=== PATIENT | female | born 1995 | race Caucasian/White ===

== ENCOUNTER 2021-06-21 20:18 | Inpatient (IN) | payer MEDICAID, OTHER ==
[~2021-06-21] VITALS: Ht 170.2 cm; Wt 72.7 kg
--- NOTE | 2021-06-21 21:22 | NUR ---
spoke with pt about discussing medical interventions and updates with mother. pt stated that was okay. I spoke to mother about pt being brought to ED. mother provided me with pt's ID and phone number. phone number and ID given to marisol OWEN
[2021-06-21] MEDS ORDERED: normal saline 1000ML IV soln IVB ONE (21:30)
[2021-06-21] MEDS ORDERED: LORazepam 2 mg/ml vial IV ONE ×2 (21:30→23:20)
[2021-06-21] MEDS ORDERED: dextrose ORAL solution 15 GM/59 ML bottle PO ONE (21:40)
[2021-06-21 22:03] LABS: BASOPHILS % (AUTO) 0.5 % (0-1); EOSINOPHILS % (AUTO) 0.2 % (0-6); HEMATOCRIT 49.1 % (35.0-45.0); HEMOGLOBIN 17.3 g/dl (12.0-16.0); LYMPHOCYTES # (AUTO) 3.3 X10'3 (1.1-4.8); LYMPHOCYTES % (AUTO) 36.6 % (21-51); MEAN CORPUSCULAR HGB CONC 35.3 g/dL (33.0-36.5); MEAN CORPUSCULAR VOLUME 96.2 FL (78-98); MEAN PLATELET VOLUME 7.3 FL (7.4-10.4); MONOCYTES # (AUTO) 0.4 X10'3 (0-0.9); MONOCYTES % (AUTO) 4.9 % (2-12); NEUTROPHILS # (AUTO) 5.2 X10'3 (1.8-7.7); NEUTROPHILS % (AUTO) 57.8 % (42-75); PLATELET COUNT 252 X10'3 (140-440); RED CELL DISTRIBUTION WIDTH 12.8 % (11.5-14.5); WHITE BLOOD COUNT 8.9 X10'3 (4.5-11.0)
[2021-06-21 22:17] LABS: ALANINE AMINOTRANSFERASE 119 U/L (12-78); ALBUMIN/GLOBULIN RATIO 0.9 (1.1-1.5); ALKALINE PHOSPHATASE 160 IU/L (46-116); ANION GAP 20 (8-16); ASPARTATE AMINO TRANSFERASE 240 U/L (10-37); BILIRUBIN,TOTAL 1.1 MG/DL (0.1-1.0); BLOOD UREA NITROGEN 10 MG/DL (7-18); CALCIUM 8.4 MG/DL (8.5-10.1); CHLORIDE 101 MMOL/L (99-107); CREATININE 0.77 MG/DL (0.40-0.90); GLUCOSE 100 MG/DL (70-104); MAGNESIUM 2.1 MG/DL (1.5-2.4); POTASSIUM 3.6 MMOL/L (3.5-5.1); SODIUM 141 MMOL/L (135-145); TOTAL CARBON DIOXIDE 20.2 MMOL/L (24-32); TOTAL PROTEIN 8.7 G/DL (6.4-8.2); eGFR > 90 ML/MIN
[2021-06-21 22:18] LABS: ETHANOL 0.358 GM/DL (0.0-0.010)
[2021-06-21] MEDS ORDERED: folic acid 1mg tablet PO ONE (22:35)
[2021-06-21] MEDS ORDERED: thiamine 100mg tablet PO ONE (22:35)
[2021-06-21 22:42] LABS: URINE HCG NEGATIVE (NEG)
[2021-06-21 22:59] LABS: CLARITY,URINE SLIGHTLY CLOUDY (Clear); COLOR,URINE YELLOW (Yellow); GLUCOSE, URINE NEGATIVE (Neg); KETONES,URINE NEGATIVE (Neg); PH,URINE 5.5 (4.8-8.0); PROTEIN,URINE NEGATIVE (Neg); UA COLLECTION TYPE URINAL; URINE AMPHETAMINE SCREEN NEGATIVE (Neg); URINE BARBITUATE SCREEN NEGATIVE (Neg); URINE BENZODIAZEPINES SCREEN NEGATIVE (Neg); URINE CANNABINOID SCREEN NEGATIVE (Neg); URINE COCAINE SCREEN NEGATIVE (Neg); URINE METHADONE SCREEN NEGATIVE (Neg); URINE OPIATE SCREEN NEGATIVE (Neg); URINE PHENCYCLIDINE SCREEN NEGATIVE (Neg)
[2021-06-21 23:00] LABS: LEUKOCYTE ESTERASE ,URINE NEGATIVE (Neg); NITRITES, URINE NEGATIVE (Neg); OCCULT BLOOD,URINE NEGATIVE (Neg); UROBILINOGEN,URINE 0.2 E.U/dL (0.2-1.0)
[2021-06-21 23:06] LABS: AMORPHOUS URATES 1+; BACTERIA,URINE 1+ /HPF (Neg); MUCUS STRANDS FEW /LPF (Neg); RBC,URINE 0-2 /HPF (0-2); SQUAMOUS EPITHELIAL CELL,UR MODERATE /LPF (FEW); WBC,URINE 0-4 /HPF (0-4)
[2021-06-21] MEDS ORDERED: potassium Cl 20 mEq SR tablet PO ONE (23:10)
[2021-06-21] MEDS ORDERED: magnesium 2GM in 50ml NS 50 ML IV ONE (23:10)
[2021-06-21] MEDS ORDERED: mag hydrox/Alum hydrox/simeth 30ml oral suspension PO PRN (23:55)
[2021-06-21] MEDS ORDERED: ondansetron/PF 4mg/2ml inj IV PRN (23:55)
[2021-06-21] MEDS ORDERED: magnesium hydroxide 30ml (MOM) UD suspension PO PRN (23:55)
[2021-06-21] MEDS ORDERED: acetaminophen 325mg tablet PO PRN (23:55)
[2021-06-22] MEDS ORDERED: LORazepam 2 mg/ml vial IV PRN
[2021-06-22] MEDS ORDERED: NO HOME MEDS (00:12)
[2021-06-22 02:04] VITALS: BP 122/55
[2021-06-22] MEDS: LORazepam 2 mg/ml vial IV PRN ×5 (02:30→20:26)
--- NOTE | 2021-06-22 06:31 | NUR ---
Problems reprioritized. Patient report given, questions answered & plan of care reviewed with Duyen OWEN. Addendum: 06/22/21 at 0632 by Cyndee Salazar RN Amended: Links added.
[2021-06-22 06:49] LABS: BASOPHILS % (AUTO) 0.2 % (0-1); EOSINOPHILS % (AUTO) 0.4 % (0-6); HEMATOCRIT 42.8 % (35.0-45.0); HEMOGLOBIN 15.2 g/dl (12.0-16.0); LYMPHOCYTES % (AUTO) 34.4 % (21-51); MEAN CORPUSCULAR HEMOGLOBIN 33.7 PG (27.0-31.0); MEAN CORPUSCULAR HGB CONC 35.4 g/dL (33.0-36.5); MEAN PLATELET VOLUME 7.3 FL (7.4-10.4); MONOCYTES # (AUTO) 0.3 X10'3 (0-0.9); MONOCYTES % (AUTO) 5.6 % (2-12); NEUTROPHILS # (AUTO) 3.4 X10'3 (1.8-7.7); NEUTROPHILS % (AUTO) 59.4 % (42-75); PLATELET COUNT 179 X10'3 (140-440); RED BLOOD COUNT 4.51 X10'6 (4.20-5.60); RED CELL DISTRIBUTION WIDTH 12.4 % (11.5-14.5); WHITE BLOOD COUNT 5.7 X10'3 (4.5-11.0)
[2021-06-22 07:00] VITALS: BP 124/54
[2021-06-22 07:09] LABS: ALANINE AMINOTRANSFERASE 116 U/L (12-78); ALBUMIN 3.3 G/DL (3.4-5.0); ALBUMIN/GLOBULIN RATIO 0.9 (1.1-1.5); ALKALINE PHOSPHATASE 148 IU/L (46-116); ANION GAP 12 (8-16); ASPARTATE AMINO TRANSFERASE 239 U/L (10-37); BILIRUBIN,TOTAL 0.7 MG/DL (0.1-1.0); BLOOD UREA NITROGEN 10 MG/DL (7-18); BUN/CREATININE RATIO 15.4 (6.6-38.0); CALCIUM 7.8 MG/DL (8.5-10.1); CHLORIDE 104 MMOL/L (99-107); CREATININE 0.65 MG/DL (0.40-0.90); GLUCOSE 93 MG/DL (70-104); POTASSIUM 3.8 MMOL/L (3.5-5.1); SODIUM 139 MMOL/L (135-145); TOTAL CARBON DIOXIDE 22.9 MMOL/L (24-32); TOTAL PROTEIN 7.1 G/DL (6.4-8.2); eGFR > 90 ML/MIN
[2021-06-22 07:30] VITALS: BP 113/78
[2021-06-22] MEDS: docusate sod 100mg capsule PO SCH ×2 (09:48→20:26)
[2021-06-22] MEDS: gabapentin 100mg capsule PO SCH ×3 (09:48→20:26)
[2021-06-22] MEDS: ESCITALOPRAM OXALATE 5 MG TABLET PO SCH (09:48)
[2021-06-22] MEDS: heparin, porcine 5000 units/ml vial SQ SCH ×2 (09:51→20:26)
[2021-06-22 12:00] VITALS: BP 112/72
--- NOTE | 2021-06-22 12:39 | NUR ---
Positive blood cultures: gram positive cocci in clusters in anaerobic bottle. Dr Zafar paged regarding results.
--- NOTE | 2021-06-22 15:01 | NUR ---
Dr Zafar aware of positive blood culture. No new orders. He says only one is positive so it may be a contaminant and she did not come in with any symptoms. Will monitor for potential growth in second culture.
[2021-06-22 18:00] VITALS: BP 136/87
--- NOTE | 2021-06-22 18:53 | NUR ---
Report given to Cyndee OWEN, all questions answered.
[2021-06-23] VITALS: BP 124/73
[2021-06-23 06:00] LABS: ALANINE AMINOTRANSFERASE 92 U/L (12-78); ALBUMIN 3.4 G/DL (3.4-5.0); ALBUMIN/GLOBULIN RATIO 0.8 (1.1-1.5); ALKALINE PHOSPHATASE 145 IU/L (46-116); ANION GAP 13 (8-16); ASPARTATE AMINO TRANSFERASE 125 U/L (10-37); BILIRUBIN,TOTAL 1.3 MG/DL (0.1-1.0); BLOOD UREA NITROGEN 7 MG/DL (7-18); CALCIUM 8.5 MG/DL (8.5-10.1); CHLORIDE 101 MMOL/L (99-107); GLUCOSE 89 MG/DL (70-104); SODIUM 138 MMOL/L (135-145); TOTAL CARBON DIOXIDE 23.9 MMOL/L (24-32); TOTAL PROTEIN 7.6 G/DL (6.4-8.2); eGFR > 90 ML/MIN
[2021-06-23 06:01] LABS: POTASSIUM 3.3 MMOL/L (3.5-5.1)
[2021-06-23 06:03] LABS: BASOPHILS % (AUTO) 0.5 % (0-1); EOSINOPHILS % (AUTO) 0.8 % (0-6); HEMATOCRIT 40.6 % (35.0-45.0); HEMOGLOBIN 14.5 g/dl (12.0-16.0); LYMPHOCYTES # (AUTO) 1.3 X10'3 (1.1-4.8); MEAN CORPUSCULAR HEMOGLOBIN 33.9 PG (27.0-31.0); MEAN CORPUSCULAR HGB CONC 35.7 g/dL (33.0-36.5); MEAN PLATELET VOLUME 8.2 FL (7.4-10.4); MONOCYTES # (AUTO) 0.3 X10'3 (0-0.9); MONOCYTES % (AUTO) 5.4 % (2-12); NEUTROPHILS # (AUTO) 3.4 X10'3 (1.8-7.7); NEUTROPHILS % (AUTO) 67.3 % (42-75); PLATELET COUNT 130 X10'3 (140-440); RED BLOOD COUNT 4.28 X10'6 (4.20-5.60); RED CELL DISTRIBUTION WIDTH 12.5 % (11.5-14.5); WHITE BLOOD COUNT 5.1 X10'3 (4.5-11.0)
--- NOTE | 2021-06-23 06:10 | NUR ---
Student documentation: I have reviewed and agree with all interventions, assessments performed and documented by Chula AMADO. Student Medication Administration: For this medication-pass time frame, all medication were reviewed, dispensed, administered and documented per hospital policy by [].
--- NOTE | 2021-06-23 06:45 | NUR ---
Patient in room [facility] 360B. I have received report from LEXIE PRICE and had the opportunity to ask questions and assume patient care.
[2021-06-23 07:00] VITALS: BP 109/90
[2021-06-23] MEDS: docusate sod 100mg capsule PO SCH ×2 (08:00→19:36)
[2021-06-23] MEDS: ESCITALOPRAM OXALATE 5 MG TABLET PO SCH (09:03)
[2021-06-23] MEDS: gabapentin 100mg capsule PO SCH ×3 (09:05→22:06)
[2021-06-23] MEDS: heparin, porcine 5000 units/ml vial SQ SCH ×2 (09:08→19:37)
[2021-06-23] MEDS: LORazepam 2 mg/ml vial IV PRN ×4 (09:19→22:06)
[2021-06-23 11:00] VITALS: BP 129/87
--- NOTE | 2021-06-23 18:58 | NUR ---
Problems reprioritized. Patient report given, questions answered & plan of care reviewed with LEXIE EDWADRS.
[2021-06-23 19:00] VITALS: BP 120/80
[2021-06-23 23:48] VITALS: BP 119/82
--- NOTE | 2021-06-24 00:53 | NUR ---
awake and watching tv no complaints at this time.
[2021-06-24 05:55] LABS: BASOPHILS % (AUTO) 0.3 % (0-1); EOSINOPHILS # (AUTO) 0.1 X10'3 (0-0.9); EOSINOPHILS % (AUTO) 3.5 % (0-6); HEMATOCRIT 39.8 % (35.0-45.0); HEMOGLOBIN 14.1 g/dl (12.0-16.0); LYMPHOCYTES # (AUTO) 1.4 X10'3 (1.1-4.8); LYMPHOCYTES % (AUTO) 36.2 % (21-51); MEAN CORPUSCULAR HEMOGLOBIN 33.9 PG (27.0-31.0); MEAN CORPUSCULAR HGB CONC 35.6 g/dL (33.0-36.5); MEAN CORPUSCULAR VOLUME 95.3 FL (78-98); MEAN PLATELET VOLUME 8.6 FL (7.4-10.4); MONOCYTES # (AUTO) 0.2 X10'3 (0-0.9); NEUTROPHILS # (AUTO) 2.2 X10'3 (1.8-7.7); PLATELET COUNT 115 X10'3 (140-440); RED BLOOD COUNT 4.17 X10'6 (4.20-5.60); RED CELL DISTRIBUTION WIDTH 12.6 % (11.5-14.5)
[2021-06-24 06:14] LABS: ALANINE AMINOTRANSFERASE 67 U/L (12-78); ALBUMIN 3.3 G/DL (3.4-5.0); ALBUMIN/GLOBULIN RATIO 0.7 (1.1-1.5); ALKALINE PHOSPHATASE 127 IU/L (46-116); ANION GAP 12 (8-16); ASPARTATE AMINO TRANSFERASE 75 U/L (10-37); BILIRUBIN,TOTAL 0.6 MG/DL (0.1-1.0); BLOOD UREA NITROGEN 5 MG/DL (7-18); BUN/CREATININE RATIO 8.3 (6.6-38.0); CALCIUM 8.7 MG/DL (8.5-10.1); CHLORIDE 102 MMOL/L (99-107); GLUCOSE 118 MG/DL (70-104); POTASSIUM 3.2 MMOL/L (3.5-5.1); SODIUM 138 MMOL/L (135-145); TOTAL PROTEIN 7.8 G/DL (6.4-8.2); eGFR > 90 ML/MIN
--- NOTE | 2021-06-24 06:27 | NUR ---
Problems reprioritized. Patient report given, questions answered & plan of care reviewed with DIANE OWEN. Addendum: 06/24/21 at 0628 by Lila Winter RN Amended: Links added.
[2021-06-24] MEDS: ESCITALOPRAM OXALATE 5 MG TABLET PO SCH (07:46)
[2021-06-24] MEDS: docusate sod 100mg capsule PO SCH ×2 (07:46→20:00)
[2021-06-24] MEDS: gabapentin 100mg capsule PO SCH ×3 (07:46→20:14)
[2021-06-24] MEDS: pantoprazole 40mg Tablet.DR PO SCH (07:46)
[2021-06-24] MEDS: heparin, porcine 5000 units/ml vial SQ SCH ×2 (07:47→20:00)
[2021-06-24] MEDS ORDERED: potassium Cl 20 mEq SR tablet PO PRN (07:50)
[2021-06-24] MEDS ORDERED: magnesium Cl slow-release 64mg tablet PO PRN (07:50)
[2021-06-24] MEDS ORDERED: potassium Cl 40MEQ/1/2NS 520ml 520 ML IV PRN (07:50)
[2021-06-24] MEDS ORDERED: magnesium 4gm in 100ml NS 100 ML IV PRN (07:50)
[2021-06-24] MEDS: LORazepam 2 mg/ml vial IV PRN (07:59)
[2021-06-24 08:52] VITALS: BP 110/65
[2021-06-24 12:49] VITALS: BP 120/67
[2021-06-24] MEDS: LORazepam 1 MG tablet PO PRN ×2 (15:22→22:21)
--- NOTE | 2021-06-24 16:18 | NUR ---
PAGER ID: [phone] MESSAGE: [id number] Maris Medina. I feel she would benefit another nights stay. She has a lot of anxiety right now. Gabriela [phone]
--- NOTE | 2021-06-24 17:28 | NUR ---
Patient with Conor from [facility], Conor states he have another staff unknown name come and see her tomorrow morning. Patient has the shakes currently, day 3 is today and feels like she is getting hot then cold and sweating a lot. Parents at bedside.
[2021-06-24 19:00] VITALS: BP 102/72
[2021-06-24] MEDS: potassium Cl 20 mEq SR tablet PO PRN (20:40)
[2021-06-25] VITALS: BP 131/84
[2021-06-25] MEDS ORDERED: temazepam 15mg capsule PO ONE (00:20)
[2021-06-25] MEDS: LORazepam 1 MG tablet PO PRN ×3 (05:41→20:33)
[2021-06-25 06:00] LABS: BASOPHILS % (AUTO) 0.5 % (0-1); EOSINOPHILS # (AUTO) 0.2 X10'3 (0-0.9); EOSINOPHILS % (AUTO) 2.8 % (0-6); HEMATOCRIT 39.6 % (35.0-45.0); LYMPHOCYTES # (AUTO) 1.4 X10'3 (1.1-4.8); LYMPHOCYTES % (AUTO) 23.7 % (21-51); MEAN CORPUSCULAR HEMOGLOBIN 33.6 PG (27.0-31.0); MEAN CORPUSCULAR HGB CONC 35.3 g/dL (33.0-36.5); MEAN CORPUSCULAR VOLUME 95.2 FL (78-98); MEAN PLATELET VOLUME 8.4 FL (7.4-10.4); MONOCYTES # (AUTO) 0.3 X10'3 (0-0.9); MONOCYTES % (AUTO) 5.5 % (2-12); NEUTROPHILS % (AUTO) 67.5 % (42-75); PLATELET COUNT 121 X10'3 (140-440); RED BLOOD COUNT 4.16 X10'6 (4.20-5.60); RED CELL DISTRIBUTION WIDTH 12.6 % (11.5-14.5); WHITE BLOOD COUNT 5.9 X10'3 (4.5-11.0)
[2021-06-25 06:13] LABS: ALANINE AMINOTRANSFERASE 74 U/L (12-78); ALBUMIN 3.2 G/DL (3.4-5.0); ALBUMIN/GLOBULIN RATIO 0.7 (1.1-1.5); ALKALINE PHOSPHATASE 116 IU/L (46-116); ANION GAP 13 (8-16); ASPARTATE AMINO TRANSFERASE 80 U/L (10-37); BILIRUBIN,TOTAL 0.7 MG/DL (0.1-1.0); BLOOD UREA NITROGEN 6 MG/DL (7-18); BUN/CREATININE RATIO 8.3 (6.6-38.0); CALCIUM 9.1 MG/DL (8.5-10.1); CHLORIDE 104 MMOL/L (99-107); CREATININE 0.72 MG/DL (0.40-0.90); GLUCOSE 120 MG/DL (70-104); MAGNESIUM 1.7 MG/DL (1.5-2.4); POTASSIUM 3.5 MMOL/L (3.5-5.1); SODIUM 142 MMOL/L (135-145); TOTAL CARBON DIOXIDE 25.1 MMOL/L (24-32); TOTAL PROTEIN 7.7 G/DL (6.4-8.2); eGFR > 90 ML/MIN
--- NOTE | 2021-06-25 06:20 | NUR ---
Problems reprioritized. Patient report given, questions answered & plan of care reviewed with DIANE. Addendum: 06/25/21 at 0621 by Jagdish Lorenzana RN Amended: Links added.
[2021-06-25 07:40] VITALS: BP 113/62
[2021-06-25] MEDS: heparin, porcine 5000 units/ml vial SQ SCH ×2 (08:00→20:33)
[2021-06-25] MEDS: ESCITALOPRAM OXALATE 5 MG TABLET PO SCH (08:36)
[2021-06-25] MEDS: gabapentin 100mg capsule PO SCH ×3 (08:36→20:33)
[2021-06-25] MEDS: docusate sod 100mg capsule PO SCH ×2 (08:36→20:33)
[2021-06-25] MEDS: pantoprazole 40mg Tablet.DR PO SCH (08:38)
--- NOTE | 2021-06-25 09:24 | NUR ---
Initial: Pt admitted w/ significant EtOH hx, admitting alcohol of 0.358 per EMR. Pt currently on Regular diet w/ ~25% intake on admission now up to 100% since 06/23 meeting needs. Recommend additional Thiamine, Folic acid, and MVI if MD agreeable given EtOH hx. LBM 06/24 receiving routine colace. Will continue to monitor and make recommendations as appropriate. Recs: 1. Continue Regular diet as tolerated 2. Routine Thiamine, Folic acid, MVI if MD agreeable 3. Bowel care per rx 4. Weekly wts Addendum: 06/25/21 at [address] Amended: Links added.
--- NOTE | 2021-06-25 09:32 | NUR ---
Met with patient in regards to alcohol use to see if patient was interested in treatment options. Patient would like to go to inpatient rehab. Patients insurance is still pending eligibility. I gave patient my card and let patient know to call me when her insurance is active and I will help her get into rehab.
[2021-06-25 11:00] VITALS: BP 119/77
--- NOTE | 2021-06-25 13:59 | NUR ---
PAGER ID: [phone] MESSAGE: [phone] Can the accu checks be DC'd? Gabriela [phone]
--- NOTE | 2021-06-25 18:52 | NUR ---
Report given to JESUS johnson RN
[2021-06-25 20:00] VITALS: BP 116/71
[2021-06-26] VITALS: BP 114/81
[2021-06-26] MEDS: LORazepam 1 MG tablet PO PRN ×2 (02:35→09:35)
[2021-06-26 05:44] LABS: BASOPHILS % (AUTO) 0.7 % (0-1); EOSINOPHILS # (AUTO) 0.1 X10'3 (0-0.9); EOSINOPHILS % (AUTO) 2.3 % (0-6); HEMATOCRIT 39.2 % (35.0-45.0); HEMOGLOBIN 13.7 g/dl (12.0-16.0); LYMPHOCYTES # (AUTO) 1.2 X10'3 (1.1-4.8); LYMPHOCYTES % (AUTO) 22.1 % (21-51); MEAN CORPUSCULAR HEMOGLOBIN 33.3 PG (27.0-31.0); MEAN CORPUSCULAR VOLUME 95.3 FL (78-98); MEAN PLATELET VOLUME 7.8 FL (7.4-10.4); MONOCYTES # (AUTO) 0.6 X10'3 (0-0.9); MONOCYTES % (AUTO) 10.6 % (2-12); NEUTROPHILS # (AUTO) 3.5 X10'3 (1.8-7.7); NEUTROPHILS % (AUTO) 64.3 % (42-75); PLATELET COUNT 137 X10'3 (140-440); RED BLOOD COUNT 4.11 X10'6 (4.20-5.60); RED CELL DISTRIBUTION WIDTH 12.8 % (11.5-14.5); WHITE BLOOD COUNT 5.4 X10'3 (4.5-11.0)
[2021-06-26 06:33] LABS: ALANINE AMINOTRANSFERASE 80 U/L (12-78); ALBUMIN 3.3 G/DL (3.4-5.0); ALBUMIN/GLOBULIN RATIO 0.7 (1.1-1.5); ALKALINE PHOSPHATASE 103 IU/L (46-116); ANION GAP 11 (8-16); ASPARTATE AMINO TRANSFERASE 72 U/L (10-37); BILIRUBIN,TOTAL 0.4 MG/DL (0.1-1.0); BLOOD UREA NITROGEN 5 MG/DL (7-18); BUN/CREATININE RATIO 7.4 (6.6-38.0); CALCIUM 8.9 MG/DL (8.5-10.1); CHLORIDE 101 MMOL/L (99-107); CREATININE 0.68 MG/DL (0.40-0.90); GLUCOSE 124 MG/DL (70-104); MAGNESIUM 1.7 MG/DL (1.5-2.4); POTASSIUM 3.3 MMOL/L (3.5-5.1); SODIUM 138 MMOL/L (135-145); TOTAL CARBON DIOXIDE 26.2 MMOL/L (24-32); eGFR > 90 ML/MIN
--- NOTE | 2021-06-26 06:34 | NUR ---
Problems reprioritized. Patient report given, questions answered & plan of care reviewed with LEXIE Sweeney .
[2021-06-26 07:00] VITALS: BP 105/68
[2021-06-26] MEDS: pantoprazole 40mg Tablet.DR PO SCH (07:30)
[2021-06-26] MEDS: gabapentin 100mg capsule PO SCH (09:29)
[2021-06-26] MEDS: potassium Cl 20 mEq SR tablet PO PRN (09:29)
[2021-06-26] MEDS: ESCITALOPRAM OXALATE 5 MG TABLET PO SCH (09:29)
[2021-06-26] MEDS: docusate sod 100mg capsule PO SCH (09:29)
[2021-06-26] MEDS: heparin, porcine 5000 units/ml vial SQ SCH ×2 (09:31→09:39)
[2021-06-26] MEDS ORDERED: BUSP10TA10 PO (09:41)
[2021-06-26] MEDS ORDERED: ESCI-8 PO (09:41)
[2021-06-26] MEDS ORDERED: potassium Cl 20 mEq SR tablet PO ONE (10:30)
--- NOTE | 2021-06-26 11:14 | NUR ---
Discharge paperwork discussed with pt. She is aware to f/u with PCP and get a CMP within a week. Discussed new medications and possible ASE. Pt. states she plans to go to rehab after her insurance okeys it. Meanwhile she plans on staying sober and living with her mother who runs an AA group. Pt. 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 Pt. aware of low plt. levels and low potassium levels. Given written dietary information on foods high in potassium. Discussed s/sx bleeding and warning signs. IV DC'd, pressure bandage applied, cannula intact, no s/sx bleeding. Escorted out to lobby by primary RN. Pt. took all of her belongings and states her mother s on her way to pick her up.
== END 2021-06-26 11:11 | disposition home or self-care (01) | DRG 897 ==
LOC: ER 20:18 → ED HOLD 23:56 → SUR 3N 06-22 01:36
PROVIDERS: ADMIT Internal Medicine; ATTEND Internal Medicine
DX: F10.239 Alcohol dependence with withdrawal, unspecified (principal); E87.2 Acidosis; R44.0 Auditory hallucinations; E16.2 Hypoglycemia, unspecified; F10.231 Alcohol dependence with withdrawal delirium; E87.6 Hypokalemia; F41.8 Other specified anxiety disorders; F41.0 Panic disorder [episodic paroxysmal anxiety]; R25.1 Tremor, unspecified; K72.90 Hepatic failure, unspecified without coma; Y90.8 Blood alcohol level of 240 mg/100 ml or more; R44.1 Visual hallucinations; Z88.5 Allergy status to narcotic agent
CPT/HCPCS: 36415; 71045; 80053; 80305; 80320; 81001; 81025; 82948; 83605; 83735; 84145; 85025; 87040; 87077; 87081; 87186; 93005; 96374; 99285; G0378; J1644; J2060; J3475; J7030

== ENCOUNTER 2021-10-18 23:14 | Emergency (ER) | payer MEDICAID ==
[~2021-10-18] VITALS: Ht 170.2 cm; Wt 77.0 kg
[~2021-10-18 23:14] MED LIST: BUSP10TA10 PO; ESCI-8 PO; NO HOME MEDS
[2021-10-19 01:13] LABS: BASOPHILS # (AUTO) 0.1 X10'3 (0-0.2); BASOPHILS % (AUTO) 1.2 % (0-1); EOSINOPHILS % (AUTO) 0.3 % (0-6); HEMATOCRIT 44.6 % (35.0-45.0); HEMOGLOBIN 15.7 g/dl (12.0-16.0); LYMPHOCYTES % (AUTO) 43.5 % (21-51); MEAN CORPUSCULAR HEMOGLOBIN 29.8 PG (27.0-31.0); MEAN CORPUSCULAR HGB CONC 35.2 g/dL (33.0-36.5); MEAN CORPUSCULAR VOLUME 84.7 FL (78-98); MEAN PLATELET VOLUME 7.2 FL (7.4-10.4); MONOCYTES # (AUTO) 0.4 X10'3 (0-0.9); MONOCYTES % (AUTO) 5.1 % (2-12); NEUTROPHILS # (AUTO) 3.4 X10'3 (1.8-7.7); NEUTROPHILS % (AUTO) 49.9 % (42-75); PLATELET COUNT 290 X10'3 (140-440); RED BLOOD COUNT 5.26 X10'6 (4.20-5.60); RED CELL DISTRIBUTION WIDTH 13.3 % (11.5-14.5); WHITE BLOOD COUNT 6.8 X10'3 (4.5-11.0)
[2021-10-19 01:29] LABS: ALANINE AMINOTRANSFERASE 30 U/L (12-78); ALBUMIN 3.8 G/DL (3.4-5.0); ALBUMIN/GLOBULIN RATIO 0.9 (1.1-1.5); ALKALINE PHOSPHATASE 139 IU/L (46-116); ANION GAP 14 (8-16); ASPARTATE AMINO TRANSFERASE 23 U/L (10-37); BILIRUBIN,TOTAL 0.3 MG/DL (0.1-1.0); BLOOD UREA NITROGEN 12 MG/DL (7-18); BUN/CREATININE RATIO 16.9 (6.6-38.0); CALCIUM 8.1 MG/DL (8.5-10.1); CHLORIDE 106 MMOL/L (99-107); CREATININE 0.71 MG/DL (0.40-0.90); ETHANOL 0.298 GM/DL (0.0-0.010); GLUCOSE 106 MG/DL (70-104); POTASSIUM 3.4 MMOL/L (3.5-5.1); SODIUM 143 MMOL/L (135-145); TOTAL CARBON DIOXIDE 23.2 MMOL/L (24-32); TOTAL PROTEIN 7.9 G/DL (6.4-8.2); eGFR > 90 ML/MIN
--- NOTE | 2021-10-19 01:30 | NUR ---
PATIENT IN THE ED WITH THE COMPLAINTS OF BEING TOO DRUNK , SHE STATES THAT SHE OVR DID IT AND WA NOT FEELING LIKE HERSELF
[2021-10-19] MEDS ORDERED: CHLO25CA10 PO ×2 (02:54→02:55)
[2021-10-19] MEDS ORDERED: chlordiazePOXIDE 25mg capsule PO ONE (03:05)
[2021-10-19 03:14] VITALS: BP 112/85
[2021-10-24] MEDS ORDERED: CHLO25CA10 PO (02:09)
[2021-10-24] MEDS ORDERED: PROM12.512 PO (02:09)
== END 2021-10-19 03:56 | disposition home or self-care (01) ==
LOC: ER 23:15
DX: F10.129 Alcohol abuse with intoxication, unspecified (principal); F31.9 Bipolar disorder, unspecified; Z88.5 Allergy status to narcotic agent; Z79.899 Other long term (current) drug therapy
CPT/HCPCS: 36415; 80053; 80320; 85025; 99283

== ENCOUNTER 2021-12-21 15:18 | Emergency (ER) | payer MEDICAID ==
[~2021-12-21] VITALS: Ht 167.6 cm; Wt 77.3 kg
[~2021-12-21 15:18] MED LIST changes: +CHLO25CA10 PO; +PROM12.512 PO
[2021-12-21 16:19] LABS: BASOPHILS % (AUTO) 0.5 % (0-1); EOSINOPHILS % (AUTO) 0.1 % (0-6); LYMPHOCYTES # (AUTO) 1.3 X10'3 (1.1-4.8); LYMPHOCYTES % (AUTO) 23.4 % (21-51); MONOCYTES # (AUTO) 0.4 X10'3 (0-0.9); MONOCYTES % (AUTO) 6.4 % (2-12); NEUTROPHILS % (AUTO) 69.6 % (42-75)
[2021-12-21 16:31] LABS: ALANINE AMINOTRANSFERASE 238 U/L (12-78); ALBUMIN/GLOBULIN RATIO 0.9 (1.1-1.5); ALKALINE PHOSPHATASE 169 IU/L (46-116); ANION GAP 19 (8-16); ASPARTATE AMINO TRANSFERASE 276 U/L (10-37); BILIRUBIN,TOTAL 1.1 MG/DL (0.1-1.0); BLOOD UREA NITROGEN 3 MG/DL (7-18); BUN/CREATININE RATIO 4.1 (6.6-38.0); CALCIUM 8.8 MG/DL (8.5-10.1); CHLORIDE 90 MMOL/L (99-107); CREATININE 0.73 MG/DL (0.40-0.90); GLUCOSE 180 MG/DL (70-104); SODIUM 136 MMOL/L (135-145); TOTAL CARBON DIOXIDE 26.6 MMOL/L (24-32); TOTAL PROTEIN 8.6 G/DL (6.4-8.2); eGFR > 90 ML/MIN
[2021-12-21 16:33] LABS: POTASSIUM 2.5 MMOL/L (3.5-5.1)
[2021-12-21 16:39] LABS: HEMATOCRIT 48.7 % (35.0-45.0); HEMOGLOBIN 17.4 g/dl (12.0-16.0); MEAN CORPUSCULAR HEMOGLOBIN 31.3 PG (27.0-31.0); MEAN CORPUSCULAR HGB CONC 35.6 g/dL (33.0-36.5); MEAN CORPUSCULAR VOLUME 87.7 FL (78-98); MEAN PLATELET VOLUME 7.2 FL (7.4-10.4); PLATELET COUNT 234 X10'3 (140-440); RED BLOOD COUNT 5.56 X10'6 (4.20-5.60); RED CELL DISTRIBUTION WIDTH 13.1 % (11.5-14.5); WHITE BLOOD COUNT 5.3 X10'3 (4.5-11.0)
[2021-12-21] MEDS ORDERED: folic acid 1mg/0.2ml inj IV ONE (17:10)
[2021-12-21] MEDS ORDERED: potassium Cl 10 mEq/100mL bag IV ONE (17:10)
[2021-12-21] MEDS ORDERED: potassium Cl 20 mEq SR tablet PO STA (17:10)
[2021-12-21] MEDS ORDERED: normal saline 1000ML IV soln IVB ONE (17:10)
[2021-12-21] MEDS ORDERED: thiamine 100mg/ml 2ml inj. IV ONE (17:10)
[2021-12-21] MEDS ORDERED: LORazepam 2 mg/ml vial IV ONE (17:55)
--- NOTE | 2021-12-21 17:55 | NUR ---
no folic acid in the omni,called pharmacy.Will deliver here.
[2021-12-21 18:12] LABS: CLARITY,URINE CLEAR (Clear); COLOR,URINE YELLOW (Yellow); GLUCOSE, URINE NEGATIVE (Neg); KETONES,URINE NEGATIVE (Neg); LEUKOCYTE ESTERASE ,URINE NEGATIVE (Neg); NITRITES, URINE NEGATIVE (Neg); OCCULT BLOOD,URINE MODERATE (Neg); PROTEIN,URINE 100 mg/dl (Neg); UROBILINOGEN,URINE 0.2 E.U/dL (0.2-1.0)
[2021-12-21 18:16] LABS: URINE HCG NEGATIVE (NEG)
[2021-12-21 18:19] LABS: UA COLLECTION TYPE CLN CATCH MIDSTREAM
[2021-12-21 18:25] LABS: AMORPHOUS URATES 1+; BACTERIA,URINE NONE SEEN /HPF (Neg); MUCUS STRANDS FEW /LPF (Neg); RBC,URINE 0-2 /HPF (0-2); SQUAMOUS EPITHELIAL CELL,UR FEW /LPF (FEW); URINE AMPHETAMINE SCREEN NEGATIVE (Neg); URINE BARBITUATE SCREEN NEGATIVE (Neg); URINE BENZODIAZEPINES SCREEN NEGATIVE (Neg); URINE CANNABINOID SCREEN NEGATIVE (Neg); URINE COCAINE SCREEN NEGATIVE (Neg); URINE METHADONE SCREEN NEGATIVE (Neg); URINE OPIATE SCREEN NEGATIVE (Neg); URINE PHENCYCLIDINE SCREEN NEGATIVE (Neg); WBC,URINE 0-4 /HPF (0-4)
[2021-12-21] MEDS ORDERED: mag hydrox/Alum hydrox/simeth 30ml oral suspension PO ONE (18:25)
[2021-12-21] MEDS ORDERED: LIDOcaine Viscous 15ml cup MM ONE (18:25)
[2021-12-21] MEDS ORDERED: sucralfate 1 gm tablet PO ONE (18:25)
[2021-12-21 18:59] LABS: ETHANOL 0.294 GM/DL (0.0-0.010)
[2021-12-21] MEDS ORDERED: SUCR1TAB34 PO (19:26)
[2021-12-21] MEDS ORDERED: OMEP40CA21 PO (19:26)
[2021-12-21 19:54] VITALS: BP 143/88
== END 2021-12-21 19:56 | disposition home or self-care (01) ==
LOC: ER 15:19
DX: K29.20 Alcoholic gastritis without bleeding (principal); F10.129 Alcohol abuse with intoxication, unspecified; R07.89 Other chest pain; R11.0 Nausea; R10.13 Epigastric pain; F41.9 Anxiety disorder, unspecified; F32.A Depression, unspecified; Z72.89 Other problems related to lifestyle; Z56.0 Unemployment, unspecified; Z88.5 Allergy status to narcotic agent; Z79.899 Other long term (current) drug therapy; Y90.0 Blood alcohol level of less than 20 mg/100 ml
CPT/HCPCS: 36415; 71045; 80053; 80305; 80320; 81001; 81025; 84484; 85025; 93005; 96361; 96374; 96375; 99285; J2060; J3411; J3480; J3490; J7030; 83880

== ENCOUNTER 2022-08-29 20:01 | Emergency (ER) | payer MEDICAID ==
[~2022-08-29] VITALS: Ht 170.2 cm; Wt 70.0 kg
[~2022-08-29 20:01] MED LIST changes: +SUCR1TAB34 PO
[2022-08-29] MEDS ORDERED: normal saline 1000ml 1,000 ML IV ONE ×2 (20:45→21:50)
[2022-08-29] MEDS ORDERED: LORazepam 2 mg/ml vial IV ONE (20:55)
[2022-08-29 21:09] LABS: EOSINOPHILS % (AUTO) 0 % (0-6); LYMPHOCYTES # (AUTO) 0.5 X10'3 (1.1-4.8); MEAN CORPUSCULAR HGB CONC 33.9 g/dL (33.0-36.5); MONOCYTES # (AUTO) 0.3 X10'3 (0-0.9)
[2022-08-29 21:11] LABS: BASOPHILS % (AUTO) 0.5 % (0-1); HEMATOCRIT 52.3 % (35.0-45.0); HEMOGLOBIN 17.7 g/dl (12.0-16.0); LYMPHOCYTES % (AUTO) 7.1 % (21-51); MEAN CORPUSCULAR HEMOGLOBIN 30.6 PG (27.0-31.0); MEAN CORPUSCULAR VOLUME 90.3 FL (78-98); MEAN PLATELET VOLUME 7.1 FL (7.4-10.4); NEUTROPHILS # (AUTO) 6.7 X10'3 (1.8-7.7); NEUTROPHILS % (AUTO) 88.4 % (42-75); PLATELET COUNT 301 X10'3 (140-440); RED BLOOD COUNT 5.79 X10'6 (4.20-5.60); WHITE BLOOD COUNT 7.5 X10'3 (4.5-11.0)
[2022-08-29 21:46] LABS: ALANINE AMINOTRANSFERASE 26 U/L (12-78); ALBUMIN 4.3 G/DL (3.4-5.0); ALBUMIN/GLOBULIN RATIO 0.9 (1.1-1.5); ALKALINE PHOSPHATASE 137 IU/L (46-116); ANION GAP 23 (8-16); ASPARTATE AMINO TRANSFERASE 36 U/L (10-37); BILIRUBIN,TOTAL 0.5 MG/DL (0.1-1.0); BLOOD UREA NITROGEN 11 MG/DL (7-18); BUN/CREATININE RATIO 15.7 (6.6-38.0); CALCIUM 8.5 MG/DL (8.5-10.1); CHLORIDE 96 MMOL/L (99-107); GLUCOSE 86 MG/DL (70-104); POTASSIUM 4.2 MMOL/L (3.5-5.1); SODIUM 136 MMOL/L (135-145); TOTAL CARBON DIOXIDE 16.8 MMOL/L (24-32); TOTAL PROTEIN 8.9 G/DL (6.4-8.2); eGFR > 90 ML/MIN
[2022-08-29] MEDS ORDERED: folic acid 1mg/0.2ml inj IV ONE (21:50)
[2022-08-29] MEDS ORDERED: thiamine 100mg/ml 2ml inj. IV ONE (21:50)
--- NOTE | 2022-08-29 22:24 | NUR ---
Agree with Amy CARD ASSEMBLER assessment
--- NOTE | 2022-08-29 22:38 | NUR ---
PT STATES SHE IS HAVING AUDITORY HALUCINATIONS AND TREMORS BEGINNING.
[2022-08-30 00:09] LABS: CLARITY,URINE CLEAR (Clear); COLOR,URINE YELLOW (Yellow); GLUCOSE, URINE NEGATIVE (Neg); KETONES,URINE >=80 mg/dl (Neg); LEUKOCYTE ESTERASE ,URINE NEGATIVE (Neg); NITRITES, URINE NEGATIVE (Neg); OCCULT BLOOD,URINE SMALL (Neg); PH,URINE 5.5 (4.8-8.0); PROTEIN,URINE 100 mg/dl (Neg); UROBILINOGEN,URINE 0.2 E.U/dL (0.2-1.0)
[2022-08-30 00:12] LABS: URINE HCG NEGATIVE (NEG)
[2022-08-30 00:14] LABS: UA COLLECTION TYPE CLN CATCH MIDSTREAM
[2022-08-30 00:15] LABS: WBC,URINE 0-4 /HPF (0-4)
[2022-08-30 00:16] LABS: BACTERIA,URINE FEW /HPF (Neg); RBC,URINE 0-2 /HPF (0-2); SQUAMOUS EPITHELIAL CELL,UR FEW /LPF (FEW)
[2022-08-30 00:41] LABS: URINE AMPHETAMINE SCREEN NEGATIVE (Neg); URINE BARBITUATE SCREEN NEGATIVE (Neg); URINE BENZODIAZEPINES SCREEN NEGATIVE (Neg); URINE CANNABINOID SCREEN NEGATIVE (Neg); URINE COCAINE SCREEN NEGATIVE (Neg); URINE METHADONE SCREEN NEGATIVE (Neg); URINE OPIATE SCREEN NEGATIVE (Neg); URINE PHENCYCLIDINE SCREEN NEGATIVE (Neg)
[2022-08-30] MEDS ORDERED: LORazepam 2 mg/ml vial IV ONE ×2 (02:40)
[2022-08-30] MEDS ORDERED: ondansetron/PF 4mg/2ml inj IV ONE (02:40)
--- NOTE | 2022-08-30 02:57 | NUR ---
PT NOW STATES HAVING VISUAL HALUCINATIONS
--- NOTE | 2022-08-30 06:18 | NUR ---
rec'd report via phone from Amy SIMS pt brought over to overflow via [employer] by tech
--- NOTE | 2022-08-30 07:42 | NUR ---
yohana sent pt packet to [facility]
[2022-08-30] MEDS: chlordiazePOXIDE 25mg capsule PO PRN (08:26)
--- NOTE | 2022-08-30 08:26 | NUR ---
CIWA SCORE was 6. Pt has been prescribed Librium 50mg. Reviewed score with Dr. Carias. Administered medication without issue. Will continue to monitor.
--- NOTE | 2022-08-30 08:30 | NUR ---
One to one with patient to assess pt's mental health. Pt presents with a fatigue/depressed affect. Pt is A&Ox4. Pt reports passive suicidal thoughts "they are always in the back of my mind." Pt states "when it gets like this, I want to go to sleep and not wake up." Pt endorses A/VH r/t ETOH withdrawal symptoms. Pt states she has had no PHF placements. States she has no showed for rehab admits. Pt feels she "is ready this time."
--- NOTE | 2022-08-30 10:30 | NUR ---
Pt up to bathroom, asked to speak with nurseCIWA score is 7. Dr. Carias notified to reassess pt's ETOH withdrawal symptoms. Jv prescibed IV Valium 5mg.
[2022-08-30] MEDS ORDERED: diazepam inj 5 MG/ML inj. IV ONE ×2 (10:50→15:10)
--- NOTE | 2022-08-30 11:39 | NUR ---
Duyen CRN started IV in left forearm.
--- NOTE | 2022-08-30 12:22 | NUR ---
Administered 5mg IV Valium. Pt tolerated well. Pt's mother and father at bedside. Conversation appropriate.
--- NOTE | 2022-08-30 14:30 | NUR ---
Pt lying in bed slightly restless. Will continue to monitor
--- NOTE | 2022-08-30 14:55 | NUR ---
CIWA - Scored 38. Observable symptoms, N/V, tremors, anxiety, agaitationparoxysmal sweats. Others subjective - Orientation, tactile disturbances, A/VH. Pt states "It's the voices in my head that are getting to me." "It's my father's voice." Pt is tearful and clearly anxious. CURRENT VITALS CHARTED: P- 117 RR 16 O2 96 BP 118.
--- NOTE | 2022-08-30 15:00 | NUR ---
RECEIVED ORDERS FROM DR. SOW Valium 10mg IV NOW Valium 5mg q4h PRN. Zofran 4mg q6h PRN.
[2022-08-30] MEDS ORDERED: ondansetron/PF 4mg/2ml inj IM PRN (15:10)
[2022-08-30] MEDS ORDERED: ondansetron/PF 4mg/2ml inj IV PRN (15:35)
--- NOTE | 2022-08-30 16:08 | NUR ---
Pt lying on bed quietly, gave crackers for something on stomach.
[2022-08-30] MEDS ORDERED: thiamine 100mg/ml 2ml inj. IV ONE ×2 (16:45→18:35)
[2022-08-30] MEDS ORDERED: dextrose 5%-1/2 normal saline 1,000 ML IV ONE (16:45)
[2022-08-30] MEDS ORDERED: magnesium 4gm in 100ml NS 100 ML IV ONE (16:45)
--- NOTE | 2022-08-30 17:07 | NUR ---
Spoke with Dr. Woodson, explained pt's 1798 is up at 2042. Pt's CIWA score remains over 30. Orders for Dextrose 5%, mag and thiamine received.
--- NOTE | 2022-08-30 17:27 | NUR ---
Pt c/o sudden, deep chest pain 02/23. EKG obtained, read by Dr. Woodson. EKG WNL's.
--- NOTE | 2022-08-30 17:28 | NUR ---
PT INFORMED TECH OF ONSET OF CP, TECH INFORMED RN AND DID EKG ON PT
[2022-08-30] MEDS: diazepam inj 5 MG/ML inj. IV PRN (22:13)
--- NOTE | 2022-08-30 22:40 | NUR ---
EKG in chart signed by MD. Pt no further c/o CP. Medicated with Valium by Pravin OWEN. CIWA score 5 at 2150. Given 5mg Valium IV per order for anxiety. VS WNL denies pain. Pt concerned about if she will be able to sleep, advised to give the Valium time to work.
[2022-08-30] MEDS ORDERED: hydrOXYzine 25 MG tablet PO ONE (23:35)
[2022-08-31] MEDS ORDERED: Melatonin 3mg tablet PO ONE (01:00)
--- NOTE | 2022-08-31 01:46 | NUR ---
Still awake at 2330 order obtained for 25 mg Hydroxyzine Pt still awake at 0045 order for 6 mg Melatonin obtained. Pt asleep at 0145
[2022-08-31] MEDS: chlordiazePOXIDE 25mg capsule PO PRN ×3 (03:07→20:46)
--- NOTE | 2022-08-31 03:15 | NUR ---
Pt awoke asked if we had heard her screaming which she had not been. She was anxious and agitated, slightly sweaty, describing some "weird' sensations in her legs. VS unchanged from prior, (see CIWA score) given Librium per order.
--- NOTE | 2022-08-31 04:00 | NUR ---
Pt sleeping resp even and unlabored CIWA assessment deferred to allow pt to sleep.
[2022-08-31] MEDS: diazepam inj 5 MG/ML inj. IV PRN ×2 (06:04→12:09)
--- NOTE | 2022-08-31 06:30 | NUR ---
Patient sleeping bed. IV fluids discontinued by JESUS Burk RN. Saline lock flushed. Patient smiled at this Advanced Manufacturing Associate and introduced self. Patient quickly fell back to sleep. Appears comfortable at this time.
--- NOTE | 2022-08-31 08:15 | NUR ---
Patient awake for breakfast. Speaks softly and is alert & oriented at this time. Appears sleepy from receiving Valium approximately 2 hours ago. Pleasant conversation at this time. Will continue to monitor. Eliseo from [facility] reported patient will not be held on a 5150 after assessment completed yesterday. CIWA still in place at this time. Patient fell right back to sleep after breakfast.
--- NOTE | 2022-08-31 08:35 | NUR ---
PACKET FAXED TO [facility]
--- NOTE | 2022-08-31 11:20 | NUR ---
Patient's mother called to check in on patient and informed that she is sleeping at this time. Mom states she might come in later today. Will continue to monitor.
--- NOTE | 2022-08-31 13:50 | NUR ---
Patient's parents arrived to hotel front desk clerk Security to see the patient. When they arrived they quickly walked to the patient's bed and sat down. They were offered chairs but refused saying they would only be staying a few minutes to visit. [facility], I overheard louder voices coming from Bed #25 and went to intervene. Per the patient, her mother had informed much of the immediate family how they found the patient on 08/29/22, lying in bed intoxicated. Patient stated "I don't want everyone to know everything that I did. I want to receive support from both of you." Patient displayed anxiety and agitation that her parents had told her that they had informed the family of patients incident that brought her here. Parents made a departure immediately after the patient informed me what they had said, telling her "We love you." Patient was given a few minutes to calm down and a decision was made to give her Librium to rest and relax. Patient laid down and fell asleep after approximately 15 minutes of administration of Librium. Will continue to monitor the patient closely.
--- NOTE | 2022-08-31 17:44 | NUR ---
Patient just woke up since Librium was administered at approximately 1400. Patient is feeling much better. No problems at this time.
--- NOTE | 2022-08-31 18:24 | NUR ---
Pt sitting in bed resting quietly.
--- NOTE | 2022-08-31 18:29 | NUR ---
pts parents arrived to visit and pt states she would like to see them. Parents at bedside.
--- NOTE | 2022-08-31 20:27 | NUR ---
Pt had quiet visit with her parents and made a phone call. Pt was up cleaning herself up and changed bed linens. Pt is pleasant and cooperative, denies s/i.
[2022-08-31] MEDS ORDERED: Melatonin 3mg tablet PO SCH (21:00)
--- NOTE | 2022-09-01 00:28 | NUR ---
pt asleep in bed resting quietly
[2022-09-01] MEDS: diazepam inj 5 MG/ML inj. IV PRN (01:40)
--- NOTE | 2022-09-01 01:45 | NUR ---
Pt awake c/o feeling sweaty and anxious. Pt states she isnt feeling well and waking up often. Pt was given Valium prn. Vitals stable. RR 16
--- NOTE | 2022-09-01 02:09 | NUR ---
Pt is laying in bed with her knees up. pt appears to be sleeping rr 14 Addendum: 09/01/22 at 0216 by [email or web address] wrong patient wrong note
--- NOTE | 2022-09-01 04:27 | NUR ---
pt is asleep rr 16
--- NOTE | 2022-09-01 05:20 | NUR ---
pt is up to use the restroom and return to bed.
[2022-09-01 05:44] VITALS: BP 97/66
[2022-09-01] MEDS: chlordiazePOXIDE 25mg capsule PO PRN (05:58)
--- NOTE | 2022-09-01 05:58 | NUR ---
Pts ciwa score is 8 this morning, pt is c/o GARCIA, sweating, anxiety 03/26. "I just want to feel normal again, I feel terrible." Pt given prn librium.
--- NOTE | 2022-09-01 06:30 | NUR ---
Pt asleep on back, noted rise and fall of chest. No distress noted.
--- NOTE | 2022-09-01 07:32 | NUR ---
Patient up using the restroom.
--- NOTE | 2022-09-01 08:39 | NUR ---
Pt ate breakfast, 1:1 done. Pt pleasant and cooperative. Pt "scared" to answer the questions regarding suicidal ideations. She states, "I dont necassarily have the will/drive to live but I dont know if that necassarily means Im suicidal." Pt. does not have a plan. Valarie, substance abuse advocator to see pt. today.
--- NOTE | 2022-09-01 10:52 | NUR ---
CIWA assessment discontinued per Dr. Woodson. New order to discontinue Valium 5mg injection Q4hrs and change to Valium 5mg PO Q8hrs. Will administer PO valium for pt. c/o anxiety.
[2022-09-01] MEDS ORDERED: diazepam 5mg tablet PO PRN (10:55)
--- NOTE | 2022-09-01 11:35 | NUR ---
PO valium not administered due to Pt sleeping. Noted rise and fall of chest.
[2022-09-01] MEDS ORDERED: LORA-269 PO (12:06)
--- NOTE | 2022-09-01 12:23 | NUR ---
Pt awake eating lunch, pt discharging today and will be in contact with [facility] tomorrow to set-up with a drug and alcohol rehab. PRN valium adminsitered at this time for anxiety.
--- NOTE | 2022-09-01 14:00 | NUR ---
Parents at bedside, Valarie, the substance abuse advocator on her way to discuss outpatient options.
--- NOTE | 2022-09-01 15:18 | NUR ---
Met with patient in regards to alcohol use and to see if patient was interested in resources for treatment options. Patient is interested in resources for outpatient treatment. I talked to patient about [facility], getting a sponsor and about medication to help with cravings. Patient has my card to call me with any questions.
== END 2022-09-01 15:00 | disposition home or self-care (01) ==
LOC: ER 20:02
DX: F10.129 Alcohol abuse with intoxication, unspecified (principal); R45.851 Suicidal ideations; Z20.822 Contact with and (suspected) exposure to COVID-19; F41.9 Anxiety disorder, unspecified; F32.9 Major depressive disorder, single episode, unspecified; Z56.0 Unemployment, unspecified; Z88.5 Allergy status to narcotic agent; Z88.8 Allergy status to other drugs, medicaments and biological substances; Z79.899 Other long term (current) drug therapy; Y90.0 Blood alcohol level of less than 20 mg/100 ml
CPT/HCPCS: 36415; 80053; 80305; 80320; 81001; 81025; 84443; 85025; 87811; 96361; 96365; 96375; 96376; 99285; J2060; J2405; J3360; J3411; J3475; J3490; J7030; J7042; Q0177; 81003

== ENCOUNTER 2022-10-06 14:56 | Emergency (ER) | payer MEDICAID ==
[~2022-10-06] VITALS: Ht 170.2 cm; Wt 68.2 kg
[~2022-10-06 14:56] MED LIST changes: +LORA-269 PO
[2022-10-06 16:44] LABS: BASOPHILS % (AUTO) 0.5 % (0-1); EOSINOPHILS # (AUTO) 0.1 X10'3 (0-0.9); HEMATOCRIT 44.9 % (35.0-45.0); HEMOGLOBIN 15.8 g/dl (12.0-16.0); LYMPHOCYTES # (AUTO) 1.8 X10'3 (1.1-4.8); LYMPHOCYTES % (AUTO) 29.9 % (21-51); MEAN CORPUSCULAR HEMOGLOBIN 31.3 PG (27.0-31.0); MEAN CORPUSCULAR HGB CONC 35.2 g/dL (33.0-36.5); MEAN PLATELET VOLUME 7.2 FL (7.4-10.4); MONOCYTES # (AUTO) 0.4 X10'3 (0-0.9); MONOCYTES % (AUTO) 6.1 % (2-12); NEUTROPHILS # (AUTO) 3.8 X10'3 (1.8-7.7); NEUTROPHILS % (AUTO) 62.5 % (42-75); PLATELET COUNT 225 X10'3 (140-440); RED BLOOD COUNT 5.04 X10'6 (4.20-5.60); RED CELL DISTRIBUTION WIDTH 13.3 % (11.5-14.5); WHITE BLOOD COUNT 6.1 X10'3 (4.5-11.0)
[2022-10-06 16:59] LABS: ALANINE AMINOTRANSFERASE 181 U/L (12-78); ALBUMIN 4.2 G/DL (3.4-5.0); ALBUMIN/GLOBULIN RATIO 1.1 (1.1-1.5); ALKALINE PHOSPHATASE 128 IU/L (46-116); ANION GAP 14 (8-16); ASPARTATE AMINO TRANSFERASE 172 U/L (10-37); BILIRUBIN,TOTAL 0.5 MG/DL (0.1-1.0); BLOOD UREA NITROGEN 3 MG/DL (7-18); BUN/CREATININE RATIO 5.2 (6.6-38.0); CHLORIDE 102 MMOL/L (99-107); CREATININE 0.58 MG/DL (0.40-0.90); GLUCOSE 176 MG/DL (70-104); POTASSIUM 3.3 MMOL/L (3.5-5.1); SODIUM 143 MMOL/L (135-145); TOTAL CARBON DIOXIDE 27.5 MMOL/L (24-32); eGFR > 90 ML/MIN
[2022-10-06 17:07] LABS: ETHANOL 0.298 GM/DL (0.0-0.010)
[2022-10-06] MEDS ORDERED: ringers solution, lacted 1,000 ML IV ONE (17:55)
[2022-10-06] MEDS ORDERED: normal saline 1000ML IV soln IV ONE (18:15)
[2022-10-06] MEDS ORDERED: thiamine 100mg/ml 2ml inj. IV ONE (18:15)
[2022-10-06 18:21] LABS: URINE HCG NEGATIVE (NEG)
[2022-10-06 18:32] LABS: CLARITY,URINE SLIGHTLY CLOUDY (Clear); COLOR,URINE STRAW (Yellow); GLUCOSE, URINE NEGATIVE (Neg); KETONES,URINE NEGATIVE (Neg); LEUKOCYTE ESTERASE ,URINE NEGATIVE (Neg); NITRITES, URINE POSITIVE (Neg); OCCULT BLOOD,URINE TRACE-INTACT (Neg); PROTEIN,URINE NEGATIVE (Neg); URINE AMPHETAMINE SCREEN NEGATIVE (Neg); URINE BARBITUATE SCREEN NEGATIVE (Neg); URINE BENZODIAZEPINES SCREEN NEGATIVE (Neg); URINE CANNABINOID SCREEN NEGATIVE (Neg); URINE COCAINE SCREEN NEGATIVE (Neg); URINE METHADONE SCREEN NEGATIVE (Neg); URINE OPIATE SCREEN NEGATIVE (Neg); URINE PHENCYCLIDINE SCREEN NEGATIVE (Neg); UROBILINOGEN,URINE 0.2 E.U/dL (0.2-1.0)
[2022-10-06 18:34] LABS: UA COLLECTION TYPE VOIDED
--- NOTE | 2022-10-06 18:35 | NUR ---
Pt came in w/ her sister w/ SI at 1730. Unable to start 12-lead EKG due to hysterical crying. Pads placed, sister at bedside. UA obtained. Report given to oncoming RNLisa.
[2022-10-06 18:40] LABS: BACTERIA,URINE 3+ /HPF (Neg); MUCUS STRANDS FEW /LPF (Neg); RBC,URINE 0-2 /HPF (0-2); SQUAMOUS EPITHELIAL CELL,UR MODERATE /LPF (FEW); WBC,URINE 0-4 /HPF (0-4)
[2022-10-06] MEDS ORDERED: LORazepam 1 MG tablet PO ONE (19:15)
[2022-10-06] MEDS ORDERED: Melatonin 3mg tablet PO SCH (22:25)
[2022-10-06] MEDS: Melatonin 3mg tablet PO SCH (22:33)
[2022-10-07] MEDS ORDERED: potassium Cl 20 mEq SR tablet PO ONE (03:40)
[2022-10-07] MEDS ORDERED: LORazepam 1 MG tablet PO ONE ×2 (04:50→17:10)
--- NOTE | 2022-10-07 06:45 | NUR ---
Patient walked over from Main to ED OF bed 24. Patient is calm and cooperative. Continue to monitor.
--- NOTE | 2022-10-07 08:17 | NUR ---
Patient eating breakfast. No distress observed. Continue to monitor.
--- NOTE | 2022-10-07 08:29 | NUR ---
Patient speaking to mom on the phone. No distress observed. Continue to monitor.
--- NOTE | 2022-10-07 10:07 | NUR ---
Patient sleeping. No distress observed. Continue to monitor.
--- NOTE | 2022-10-07 11:41 | NUR ---
Met with patient in regards to alcohol use and to see if patient wanted any resources for treatment options. Patient was on Naltrexone and relapsed. Patient has been doing weekly meetings. Patient is having a hard time right now but wants resources for treatment. I gave patient information on different treatment options and my card to call me with any questions.
--- NOTE | 2022-10-07 12:11 | NUR ---
Patient eating lunch. No distress observed. Continue to monitor.
[2022-10-07] MEDS ORDERED: ibuprofen tablet 400 MG TABLET PO PRN (12:15)
--- NOTE | 2022-10-07 12:24 | NUR ---
Patient c/o dysuria started today. RN spoke to RODRIGO Batista who wants a new clean catch since the last one was dirty. Okay to start on ibuprofen. Continue to monitor.
[2022-10-07 12:53] LABS: CLARITY,URINE SLIGHTLY CLOUDY (Clear); COLOR,URINE YELLOW (Yellow); GLUCOSE, URINE NEGATIVE (Neg); KETONES,URINE NEGATIVE (Neg); LEUKOCYTE ESTERASE ,URINE TRACE (Neg); NITRITES, URINE NEGATIVE (Neg); OCCULT BLOOD,URINE TRACE-INTACT (Neg); PROTEIN,URINE NEGATIVE (Neg); UROBILINOGEN,URINE 0.2 E.U/dL (0.2-1.0)
[2022-10-07 12:58] LABS: UA COLLECTION TYPE CLN CATCH MIDSTREAM
[2022-10-07 13:01] LABS: BACTERIA,URINE 1+ /HPF (Neg); MUCUS STRANDS NONE SEEN /LPF (Neg); RBC,URINE 0-2 /HPF (0-2); SQUAMOUS EPITHELIAL CELL,UR MODERATE /LPF (FEW)
[2022-10-07 13:02] LABS: WBC CLUMPS,URINE FEW /HPF (NEGATIVE)
[2022-10-07 13:03] LABS: TRANSITIONAL EPI CELLS,URINE FEW /HPF
--- NOTE | 2022-10-07 14:26 | NUR ---
Patient on the phone with her father. No distress observed. Continue to monitor.
--- NOTE | 2022-10-07 16:19 | NUR ---
Patient laying in bed awake. No distress observed. Continue to monitor.
[2022-10-07] MEDS: sulfamethoxazole/trimethoprim DS (800/160mg) tablet PO SCH ×2 (17:00→19:54)
--- NOTE | 2022-10-07 17:31 | NUR ---
Parents at bedside chatting with patient. Patient received Ativan for some anxiety. Last Ativan was 12 hours ago. No distress observed. Continue to monitor.
[2022-10-07 17:47] VITALS: BP 118/70
[2022-10-07] MEDS: Melatonin 3mg tablet PO SCH (20:54)
== END 2022-10-07 21:41 ==
LOC: ER 14:57
DX: F10.129 Alcohol abuse with intoxication, unspecified (principal); Z20.822 Contact with and (suspected) exposure to COVID-19; R45.851 Suicidal ideations; M79.18 Myalgia, other site; F32.9 Major depressive disorder, single episode, unspecified; F41.9 Anxiety disorder, unspecified; F41.0 Panic disorder [episodic paroxysmal anxiety]; Z88.5 Allergy status to narcotic agent; Z56.0 Unemployment, unspecified; Z79.899 Other long term (current) drug therapy; Y90.9 Presence of alcohol in blood, level not specified
CPT/HCPCS: 36415; 80053; 80305; 80320; 81001; 81025; 82009; 84443; 85025; 87077; 87088; 87186; 87811; 96361; 96374; 99285; C2617; J3411; J7030; J7120; 96360

== ENCOUNTER 2022-12-06 14:56 | Emergency (ER) | payer MEDICAID ==
[~2022-12-06] VITALS: Ht 167.6 cm; Wt 63.4 kg
[~2022-12-06 14:56] MED LIST changes: -BUSP10TA10 PO; +BUSP5TAB26 PO; -CHLO25CA10 PO; -ESCI-8 PO; +ESCI20TA39 PO; +HYDR-3717 PO; -LORA-269 PO; +Lorazepam PO; +NALT50TA PO; -NO HOME MEDS; -PROM12.512 PO; +QUET25TA36 PO; -SUCR1TAB34 PO
[2022-12-06] MEDS ORDERED: LORazepam 2 mg/ml vial IV ONE (15:25)
[2022-12-06 15:34] LABS: URINE HCG NEGATIVE (NEG)
[2022-12-06 15:35] LABS: BASOPHILS # (AUTO) 0.1 X10'3 (0-0.2); BASOPHILS % (AUTO) 0.5 % (0-1); EOSINOPHILS % (AUTO) 0 % (0-6); HEMATOCRIT 45.4 % (35.0-45.0); HEMOGLOBIN 16.1 g/dl (12.0-16.0); LYMPHOCYTES # (AUTO) 2.3 X10'3 (1.1-4.8); LYMPHOCYTES % (AUTO) 20.6 % (21-51); MEAN CORPUSCULAR HEMOGLOBIN 31.4 PG (27.0-31.0); MEAN CORPUSCULAR HGB CONC 35.5 g/dL (33.0-36.5); MEAN CORPUSCULAR VOLUME 88.6 FL (78-98); MEAN PLATELET VOLUME 6.5 FL (7.4-10.4); MONOCYTES # (AUTO) 0.2 X10'3 (0-0.9); MONOCYTES % (AUTO) 1.9 % (2-12); NEUTROPHILS # (AUTO) 8.6 X10'3 (1.8-7.7); PLATELET COUNT 304 X10'3 (140-440); RED BLOOD COUNT 5.12 X10'6 (4.20-5.60); RED CELL DISTRIBUTION WIDTH 12.9 % (11.5-14.5); WHITE BLOOD COUNT 11.2 X10'3 (4.5-11.0)
[2022-12-06 15:35] LABS: CLARITY,URINE SLIGHTLY CLOUDY (Clear); COLOR,URINE YELLOW (Yellow); GLUCOSE, URINE NEGATIVE (Neg); KETONES,URINE NEGATIVE (Neg); LEUKOCYTE ESTERASE ,URINE TRACE (Neg); NITRITES, URINE NEGATIVE (Neg); OCCULT BLOOD,URINE TRACE-INTACT (Neg); PROTEIN,URINE NEGATIVE (Neg); UROBILINOGEN,URINE 0.2 E.U/dL (0.2-1.0)
[2022-12-06 15:51] LABS: UA COLLECTION TYPE VOIDED
[2022-12-06 15:51] LABS: ALANINE AMINOTRANSFERASE 22 U/L (12-78); ALBUMIN 4.1 G/DL (3.4-5.0); ALKALINE PHOSPHATASE 83 IU/L (46-116); ANION GAP 14 (8-16); ASPARTATE AMINO TRANSFERASE 27 U/L (10-37); BILIRUBIN,TOTAL 0.3 MG/DL (0.1-1.0); BLOOD UREA NITROGEN 8 MG/DL (7-18); BUN/CREATININE RATIO 15.7 (10.0-20.0); CALCIUM 8.8 MG/DL (8.5-10.1); CHLORIDE 102 MMOL/L (99-107); CREATININE 0.51 MG/DL (0.40-0.90); GLUCOSE 107 MG/DL (70-104); POTASSIUM 3.8 MMOL/L (3.5-5.1); SODIUM 141 MMOL/L (135-145); TOTAL CARBON DIOXIDE 25.3 MMOL/L (24-32); TOTAL PROTEIN 8.3 G/DL (6.4-8.2); eGFR > 90 ML/MIN
[2022-12-06 15:52] LABS: BACTERIA,URINE FEW /HPF (Neg); MUCUS STRANDS FEW /LPF (Neg); RBC,URINE 0-2 /HPF (0-2); SQUAMOUS EPITHELIAL CELL,UR MANY /LPF (FEW); WBC,URINE 0-4 /HPF (0-4)
[2022-12-06 15:58] LABS: URINE AMPHETAMINE SCREEN NEGATIVE (Neg); URINE BARBITUATE SCREEN NEGATIVE (Neg); URINE BENZODIAZEPINES SCREEN NEGATIVE (Neg); URINE CANNABINOID SCREEN NEGATIVE (Neg); URINE COCAINE SCREEN NEGATIVE (Neg); URINE METHADONE SCREEN NEGATIVE (Neg); URINE OPIATE SCREEN NEGATIVE (Neg); URINE PHENCYCLIDINE SCREEN NEGATIVE (Neg)
[2022-12-06 16:08] LABS: ETHANOL 0.379 GM/DL (0.0-0.010)
--- NOTE | 2022-12-06 17:01 | NUR ---
[facility] PACKET FAXED
--- NOTE | 2022-12-06 17:08 | NUR ---
[facility] TO SEE PT TOMORROW SECONDARY TO ETOH LEVEL
--- NOTE | 2022-12-06 17:28 | NUR ---
Patient reports to [facility] she will grab something from bio chanell bag and kill herself.Parents went home at this time.
--- NOTE | 2022-12-06 17:31 | NUR ---
Room and environement cleared for potential threat.
--- NOTE | 2022-12-06 17:48 | NUR ---
Faxed diet tray request to dietary.Dad at bedside.
[2022-12-06] MEDS ORDERED: LORazepam 2 mg/ml vial IV STA (17:55)
[2022-12-06 19:02] VITALS: BP 116/82
[2022-12-06] MEDS ORDERED: LORazepam 1 MG tablet PO ONE (20:00)
--- NOTE | 2022-12-06 21:17 | NUR ---
Pt is awake and resting on her right side reading a magazine. RR even and unlabored, pt in NAD.
--- NOTE | 2022-12-06 22:16 | NUR ---
Pt stated she came here after going on a drinking janessa. Pt still has suicidal ideations. "I don't know why I wanted to hurt myself". Pt could not identify any stressors. Monitor for safety, RR even and unlabored, pt in NAD.
--- NOTE | 2022-12-07 | NUR ---
Pt c/o anxiety. MD informed. Pt is resting on left side, RR even and unlabored, pt in NAD.
[2022-12-07] MEDS ORDERED: chlordiazePOXIDE 25mg capsule PO ONE (00:05)
[2022-12-07] MEDS ORDERED: haloperidol lactate 5mg/ml inj IM ONE (00:05)
--- NOTE | 2022-12-07 03:11 | NUR ---
Pt is asleep in room 14, in NAD. RR even and unlabored.
[2022-12-07] MEDS ORDERED: LORazepam 1 MG tablet PO ONE ×2 (06:05→11:20)
--- NOTE | 2022-12-07 06:14 | NUR ---
Pt woke up and felt anxious and panicy. Ativan 1mg ordered.
--- NOTE | 2022-12-07 06:40 | NUR ---
Patient ambulatory, steady gait to ED OF Bed 22 from Main ED. Patient is calm and cooperative. Continue to monitor.
[2022-12-07] MEDS ORDERED: ESCI20TA39 PO (07:47)
[2022-12-07] MEDS ORDERED: SERT25TA PO (07:47)
[2022-12-07] MEDS ORDERED: HYDR-3686 PO (07:47)
[2022-12-07] MEDS ORDERED: BUSP5TAB3 PO (07:47)
[2022-12-07] MEDS ORDERED: QUET25TA PO (07:47)
[2022-12-07] MEDS ORDERED: NALT50TA PO (07:47)
--- NOTE | 2022-12-07 08:19 | NUR ---
Patient eating breakfast. No distress observed. Continue to monitor.
[2022-12-07] MEDS ORDERED: hydrOXYzine 25 MG tablet PO PRN (08:50)
[2022-12-07] MEDS ORDERED: busPIRone 5mg tablet PO SCH (08:57)
[2022-12-07] MEDS ORDERED: sertraline 25mg tablet PO SCH (08:58)
[2022-12-07] MEDS ORDERED: ESCITALOPRAM OXALATE 5 MG TABLET PO SCH (08:59)
[2022-12-07] MEDS ORDERED: naltrexone 50mg tablet PO SCH (08:59)
--- NOTE | 2022-12-07 09:40 | NUR ---
AGGIE, Nadine, evaluating patient. No distress observed. Continue to monitor.
[2022-12-07] MEDS ORDERED: QUEtiapine 25mg tablet PO SCH (21:00)
== END 2022-12-07 11:50 | disposition home or self-care (01) ==
LOC: ER 14:57
DX: R45.851 Suicidal ideations (principal); Z20.822 Contact with and (suspected) exposure to COVID-19; F10.20 Alcohol dependence, uncomplicated; F31.9 Bipolar disorder, unspecified; Z59.00 Homelessness unspecified; Z88.5 Allergy status to narcotic agent; Z79.899 Other long term (current) drug therapy; Z79.1 Long term (current) use of non-steroidal anti-inflammatories (NSAID); Z79.2 Long term (current) use of antibiotics
CPT/HCPCS: 36415; 80053; 80305; 80320; 81001; 81025; 84443; 85025; 87811; 96372; 96374; 96376; 99285; J1630; J2060; Q0177; A6253; A6449

== ENCOUNTER 2022-12-15 00:26 | Emergency (ER) | payer MEDICAID ==
[~2022-12-15] VITALS: Ht 167.6 cm; Wt 72.7 kg
[~2022-12-15 00:26] MED LIST changes: -BUSP5TAB26 PO; +BUSP5TAB3 PO; +HYDR-3686 PO; -HYDR-3717 PO; -Lorazepam PO; +QUET25TA PO; -QUET25TA36 PO; +SERT25TA PO
--- NOTE | 2022-12-15 01:17 | NUR ---
REC'D PT IN POC IN NAD, A&O, DENIES ANY PAIN, SKIN WDI, NO SOB, AND AMB WITH STEADY GAIT. PRESENTS TO ER FOR SUICIDAL IDEATIONS; BEING TREATED FOR HX OF SI AND EXACERBATED BY ETOH INTAKE AND ALTERCATION AT HOME, REQUESTING HELP. HAS NO PLAN, NO CURRENT INTENT, BUT ADMITS WOULD RATHER BE
[2022-12-15 02:20] LABS: BASOPHILS % (AUTO) 0.7 % (0-1); EOSINOPHILS # (AUTO) 0.1 X10'3 (0-0.9); EOSINOPHILS % (AUTO) 1.3 % (0-6); HEMATOCRIT 42.5 % (35.0-45.0); HEMOGLOBIN 14.8 g/dl (12.0-16.0); LYMPHOCYTES # (AUTO) 3.2 X10'3 (1.1-4.8); LYMPHOCYTES % (AUTO) 44.6 % (21-51); MEAN CORPUSCULAR HEMOGLOBIN 31.7 PG (27.0-31.0); MEAN CORPUSCULAR HGB CONC 34.8 g/dL (33.0-36.5); MEAN CORPUSCULAR VOLUME 91.1 FL (78-98); MEAN PLATELET VOLUME 7.7 FL (7.4-10.4); MONOCYTES # (AUTO) 0.4 X10'3 (0-0.9); MONOCYTES % (AUTO) 6.1 % (2-12); NEUTROPHILS # (AUTO) 3.4 X10'3 (1.8-7.7); NEUTROPHILS % (AUTO) 47.3 % (42-75); PLATELET COUNT 231 X10'3 (140-440); RED BLOOD COUNT 4.66 X10'6 (4.20-5.60); RED CELL DISTRIBUTION WIDTH 13.3 % (11.5-14.5); WHITE BLOOD COUNT 7.2 X10'3 (4.5-11.0)
[2022-12-15 02:22] LABS: ALANINE AMINOTRANSFERASE 19 U/L (12-78); ALBUMIN 3.8 G/DL (3.4-5.0); ALKALINE PHOSPHATASE 87 IU/L (46-116); ANION GAP 11 (8-16); ASPARTATE AMINO TRANSFERASE 15 U/L (10-37); BILIRUBIN,TOTAL 0.1 MG/DL (0.1-1.0); BLOOD UREA NITROGEN 9 MG/DL (7-18); BUN/CREATININE RATIO 13.8 (10.0-20.0); CALCIUM 8.3 MG/DL (8.5-10.1); CHLORIDE 107 MMOL/L (99-107); CREATININE 0.65 MG/DL (0.40-0.90); ETHANOL 0.255 GM/DL (0.0-0.010); GLUCOSE 110 MG/DL (70-104); POTASSIUM 3.2 MMOL/L (3.5-5.1); SODIUM 146 MMOL/L (135-145); TOTAL CARBON DIOXIDE 28.1 MMOL/L (24-32); TOTAL PROTEIN 7.5 G/DL (6.4-8.2); eGFR > 90 ML/MIN
[2022-12-15 02:24] LABS: URINE HCG NEGATIVE (NEG)
[2022-12-15 02:47] LABS: URINE AMPHETAMINE SCREEN NEGATIVE (Neg); URINE BARBITUATE SCREEN NEGATIVE (Neg); URINE BENZODIAZEPINES SCREEN NEGATIVE (Neg); URINE CANNABINOID SCREEN NEGATIVE (Neg); URINE COCAINE SCREEN NEGATIVE (Neg); URINE METHADONE SCREEN NEGATIVE (Neg); URINE OPIATE SCREEN NEGATIVE (Neg); URINE PHENCYCLIDINE SCREEN NEGATIVE (Neg)
--- NOTE | 2022-12-15 05:10 | NUR ---
PATIENT'S PACKET WAS SENT TO [facility] .
[2022-12-15 05:46] VITALS: BP 108/64
[2022-12-15] MEDS ORDERED: LORazepam 1 MG tablet PO ONE (08:30)
--- NOTE | 2022-12-15 10:20 | NUR ---
Met with patient in regards to alcohol use and to see if patient has been taking Naltrexone as prescribed since last seeing her. Patient states that she has been much better with drinking. This is the first time she has slipped and it was after an argument with her parents. Patient has been taking Naltrexone. Patient has not yet got a sponsor, started meetings or got into counseling. I expressed the importance of getting a sponsor and following through with all the steps of her recovery. Patient will call me if she has any questions.
== END 2022-12-15 14:23 | disposition home or self-care (01) ==
LOC: ER 00:27
DX: R45.851 Suicidal ideations (principal); Z20.822 Contact with and (suspected) exposure to COVID-19; F32.A Depression, unspecified; F10.10 Alcohol abuse, uncomplicated; Y90.9 Presence of alcohol in blood, level not specified; F17.200 Nicotine dependence, unspecified, uncomplicated; F41.9 Anxiety disorder, unspecified; Z88.5 Allergy status to narcotic agent; Z79.899 Other long term (current) drug therapy; Z79.1 Long term (current) use of non-steroidal anti-inflammatories (NSAID)
CPT/HCPCS: 36415; 80053; 80305; 80320; 81025; 85025; 87811; 99285

== ENCOUNTER 2022-12-19 18:26 | Emergency (ER) | payer MEDICAID ==
[~2022-12-19] VITALS: Ht 167.6 cm; Wt 64.6 kg
[2022-12-19 20:26] LABS: BASOPHILS % (AUTO) 0.7 % (0-1); EOSINOPHILS % (AUTO) 0.5 % (0-6); HEMATOCRIT 46.2 % (35.0-45.0); HEMOGLOBIN 16.1 g/dl (12.0-16.0); LYMPHOCYTES # (AUTO) 2.1 X10'3 (1.1-4.8); LYMPHOCYTES % (AUTO) 34.6 % (21-51); MEAN CORPUSCULAR HEMOGLOBIN 31.4 PG (27.0-31.0); MEAN CORPUSCULAR VOLUME 89.8 FL (78-98); MEAN PLATELET VOLUME 6.4 FL (7.4-10.4); MONOCYTES # (AUTO) 0.2 X10'3 (0-0.9); MONOCYTES % (AUTO) 2.7 % (2-12); NEUTROPHILS # (AUTO) 3.8 X10'3 (1.8-7.7); NEUTROPHILS % (AUTO) 61.5 % (42-75); PLATELET COUNT 285 X10'3 (140-440); RED BLOOD COUNT 5.14 X10'6 (4.20-5.60); RED CELL DISTRIBUTION WIDTH 13.5 % (11.5-14.5); WHITE BLOOD COUNT 6.2 X10'3 (4.5-11.0)
[2022-12-19 20:39] LABS: ALANINE AMINOTRANSFERASE 20 U/L (12-78); ALKALINE PHOSPHATASE 80 IU/L (46-116); ANION GAP 15 (8-16); ASPARTATE AMINO TRANSFERASE 22 U/L (10-37); BILIRUBIN,TOTAL 0.3 MG/DL (0.1-1.0); BLOOD UREA NITROGEN 11 MG/DL (7-18); BUN/CREATININE RATIO 15.7 (10.0-20.0); CHLORIDE 105 MMOL/L (99-107); GLUCOSE 82 MG/DL (70-104); POTASSIUM 3.4 MMOL/L (3.5-5.1); SODIUM 142 MMOL/L (135-145); TOTAL CARBON DIOXIDE 22.1 MMOL/L (24-32); TOTAL PROTEIN 7.9 G/DL (6.4-8.2); eGFR > 90 ML/MIN
--- NOTE | 2022-12-19 21:30 | NUR ---
unable to obtain assessments on pt due to unwillingness to participate, pt came in etoh impaired as well.
[2022-12-19] MEDS ORDERED: nicotine 21mg patch - 24 hr TD ONE (22:20)
[2022-12-19] MEDS ORDERED: LORazepam 2 mg/ml vial IM ONE (22:45)
--- NOTE | 2022-12-19 22:54 | NUR ---
pt has been wandering up to registration x 2, she was placed into green scrubs per [employer], belongings removed. Security has been with the patient. The patient has talked to the provider about her 1798 hold. She has talked to me about it. She wants to leave. She is aware that if she leaves the police will be notified. She said she doesn't care. Police being notified per security stating to call them
[2022-12-19] MEDS ORDERED: haloperidol lactate 5mg/ml inj IM ONE (23:00)
--- NOTE | 2022-12-19 23:00 | NUR ---
she just left. Jamila refinery operator helper cracking unit states they were notified.
--- NOTE | 2022-12-19 23:11 | NUR ---
security informed me she walked back in and is now sitting on her bed laughing with one security system installer.
--- NOTE | 2022-12-19 23:30 | NUR ---
Officer from [place] here to talk to the patient.
[2022-12-19] MEDS ORDERED: traZODone 50mg tablet PO ONE (23:55)
[2022-12-20 00:15] LABS: COLOR,URINE YELLOW (Yellow); GLUCOSE, URINE NEGATIVE (Neg); KETONES,URINE 40 mg/dl (Neg); LEUKOCYTE ESTERASE ,URINE NEGATIVE (Neg); NITRITES, URINE NEGATIVE (Neg); OCCULT BLOOD,URINE MODERATE (Neg); PROTEIN,URINE TRACE mg/dl (Neg); UROBILINOGEN,URINE 0.2 E.U/dL (0.2-1.0)
[2022-12-20 00:17] LABS: UA COLLECTION TYPE VOIDED
[2022-12-20 00:26] LABS: BACTERIA,URINE FEW /HPF (Neg); CLARITY,URINE SLIGHTLY CLOUDY (Clear); MUCUS STRANDS FEW /LPF (Neg); SQUAMOUS EPITHELIAL CELL,UR FEW /LPF (FEW)
[2022-12-20 00:35] LABS: URINE AMPHETAMINE SCREEN NEGATIVE (Neg); URINE BARBITUATE SCREEN NEGATIVE (Neg); URINE BENZODIAZEPINES SCREEN NEGATIVE (Neg); URINE CANNABINOID SCREEN NEGATIVE (Neg); URINE COCAINE SCREEN NEGATIVE (Neg); URINE METHADONE SCREEN NEGATIVE (Neg); URINE OPIATE SCREEN NEGATIVE (Neg); URINE PHENCYCLIDINE SCREEN NEGATIVE (Neg)
[2022-12-20] MEDS ORDERED: LORazepam 1 MG tablet PO ONE ×2 (10:23→16:50)
--- NOTE | 2022-12-20 10:30 | NUR ---
Pt asked how often she can have ativan. Per provider q 1-2 hrs prn. Pt requested I check back w/ her at 12:30, @ 2 hrs.
--- NOTE | 2022-12-20 10:37 | NUR ---
PACKET FAXED TO [facility]
--- NOTE | 2022-12-20 12:30 | NUR ---
Pt's family present w/ pt. States she is "fine" at this time and does not need the ativan.
--- NOTE | 2022-12-20 17:58 | NUR ---
Pt states she is feeling much calmer after receiving ativan. Pt sitting at bed.
--- NOTE | 2022-12-20 18:41 | NUR ---
RECIEVED CARE OF THE PT. PT IS REQUESTING A DINNER TRAY ONE WAS NOT DELIVERED. PT STATES NO OTHER NEED AT THIS TIME.
--- NOTE | 2022-12-20 22:30 | NUR ---
PT IS RESTING IN ROOM ON THE GURNEY. PT IS REQUESTING HER MEDICATIONS FROM HOME BE CONTINUED. MD SCHUMACHER MADE AWARE. PT HAS NO OTHER NEEDS AT THIS TIME.
--- NOTE | 2022-12-21 07:18 | NUR ---
Patient transported by electromechanical technician to overflow. VS afebrile. Report given to Katelin OWEN.
[2022-12-21] MEDS: sertraline 50mg tablet PO SCH (08:19)
[2022-12-21] MEDS: busPIRone 5mg tablet PO SCH ×3 (08:19→20:30)
[2022-12-21] MEDS: naltrexone 50mg tablet PO SCH (08:19)
[2022-12-21] MEDS: ESCITALOPRAM OXALATE 5 MG TABLET PO SCH (08:24)
--- NOTE | 2022-12-21 10:53 | NUR ---
0730 received report from Aaron SIMS assuming care of pt. Pt awake AOx4. Remains here on 179 hold for SI/HI at present time she denies SI/HI or AH/VH. Pt endorses feeling of SI when drinking "I need to stop drinking again cristofer that's when I start getting that way" pt verbalized need to seek out other support options such as AA " a sponser would help I think". Pt is calm and cooperative making good eye contact assoicated with appropriate affect. She has consumed 100% of breakfast this am. Pt endorses being on a daily drinking regime 12 pk of 8% ETOH " [place]" for 2 weeks. She can not verbalize triggers that started back drinking this time " I don't know" Pt verbalized HX of sz association with withdrawal when she was drinking" hard alcohol" states several years ago last episode. Pt's BA on arrival .330 523 at 2017. No s/s of withdrawals noted at present time.
[2022-12-21] MEDS: hydrOXYzine 25 MG tablet PO PRN (11:16)
--- NOTE | 2022-12-21 11:24 | NUR ---
pt c/o anxiety " I just need to sleep" atarax 25mg po admin " I taken so much of those they don't work for me" " I need ativan or seroquel to sleep"
--- NOTE | 2022-12-21 13:24 | NUR ---
pt's mother and father exit after approx 1 hour visit. Pt appears more relaxed post visit. pt ate 30% of luch.
--- NOTE | 2022-12-21 16:41 | NUR ---
pt request cleaning wipes " I just want to not feel sticky. Can I get clean clothes too please" clean set of scrubs provided. Pt entered bathroom with items exited after completing ADLs.
[2022-12-21] MEDS ORDERED: LORazepam 1 MG tablet PO ONE (17:20)
--- NOTE | 2022-12-21 17:45 | NUR ---
Patient complains of anxiety, unrelieved by earlier Atarax. Per Dr. Hardin give 2 mg PO Ativan. This was done.
--- NOTE | 2022-12-21 19:20 | NUR ---
Patient is pleasant and cooperative; she visited with family shortly after shift change. Patient appeared to enjoy the visit and currently laying in bed quietly.
[2022-12-21] MEDS: QUEtiapine 25mg tablet PO SCH (20:29)
--- NOTE | 2022-12-21 22:13 | NUR ---
Patient was pleasant and cooperative with medication. She reported +AH everytime she lays her head down to sleep. Denied SI, HI, VH at this time. Patient is currently sleeping; no apparent distress with even respirations and self repositioning.
--- NOTE | 2022-12-22 00:15 | NUR ---
Patient sleeping; no apparent distress. Even respirations and self repositioning.
--- NOTE | 2022-12-22 02:37 | NUR ---
Patient is sleeping with no apparent distress; even respirations and self repositioning.
--- NOTE | 2022-12-22 05:15 | NUR ---
Patient asleep with no apparent distress; even respirations and continues to self reposition.
--- NOTE | 2022-12-22 06:43 | NUR ---
Patient up to the nurse's station to ask if she can adjust her bed without asking. RN advised patient to adjust away. Patient smiled and went back to adjust her bed. No distress observed. Continue to monitor.
[2022-12-22] MEDS: sertraline 50mg tablet PO SCH ×2 (08:00→08:55)
--- NOTE | 2022-12-22 08:17 | NUR ---
Patient eating breakfast. No distress observed. Continue to monitor.
[2022-12-22] MEDS: naltrexone 50mg tablet PO SCH (08:52)
[2022-12-22] MEDS: ESCITALOPRAM OXALATE 5 MG TABLET PO SCH (08:54)
[2022-12-22] MEDS: busPIRone 5mg tablet PO SCH ×3 (08:55→20:30)
--- NOTE | 2022-12-22 10:10 | NUR ---
Patient sleeping supine. No distress observed. Continue to monitor.
--- NOTE | 2022-12-22 12:25 | NUR ---
Patient eating lunch. No distress observed. Continue to monitor.
--- NOTE | 2022-12-22 12:46 | NUR ---
Patient's dad at bedside. No distress observed. Continue to monitor.
--- NOTE | 2022-12-22 13:11 | NUR ---
Substance Abuse NavigatorDoreen, with patient and father. No distress observed. Continue to monitor.
--- NOTE | 2022-12-22 15:19 | NUR ---
Patient visiting with her mom and dad. No distress observed. Continue to monitor.
--- NOTE | 2022-12-22 17:18 | NUR ---
Patient sleeping on her right side. No distress observed. Continue to monitor.
--- NOTE | 2022-12-22 19:38 | NUR ---
Patient is pleasant and cooperative; ate dinner and now laying quietly in bed.
[2022-12-22] MEDS: QUEtiapine 25mg tablet PO SCH (20:30)
[2022-12-22] MEDS: hydrOXYzine 25 MG tablet PO PRN (20:36)
--- NOTE | 2022-12-22 22:50 | NUR ---
[id number] Nurse to nurse given to [facility]; packet will be presented to doctor around 0 and they will call back. TSH level was requested. Patient is sleeping with no apparent distress; even respirations and self repositions. Addendum: 12/22/22 at 225 by MARY ANN TSH levels obtained within last 6months have been faxed to [facility]
--- NOTE | 2022-12-23 00:26 | NUR ---
Patient is sleeping with no apparent distress; even respirations and self repositioning.
--- NOTE | 2022-12-23 03:07 | NUR ---
Patient is sleeping with no apparent distress; even respirations and continues to self reposition.
--- NOTE | 2022-12-23 05:59 | NUR ---
Patient was accepted to [facility] @[id number] [facility] and [facility] need to schedule time frame together. Covid result faxed per request.
--- NOTE | 2022-12-23 06:43 | NUR ---
Patient sleeping supine. No distress observed. Continue to monitor.
[2022-12-23 06:45] VITALS: BP 107/70
[2022-12-23] MEDS: sertraline 50mg tablet PO SCH (08:00)
--- NOTE | 2022-12-23 08:16 | NUR ---
Patient eating breakfast. No distress observed. Continue to monitor.
[2022-12-23 09:10] LABS: URINE HCG NEGATIVE (NEG)
[2022-12-23] MEDS: naltrexone 50mg tablet PO SCH (09:55)
[2022-12-23] MEDS: busPIRone 5mg tablet PO SCH (09:55)
[2022-12-23] MEDS: ESCITALOPRAM OXALATE 5 MG TABLET PO SCH (09:55)
--- NOTE | 2022-12-23 10:11 | NUR ---
Patient on the phone and speaking with family. No distress observed. Continue to monitor.
== END 2022-12-23 12:50 ==
LOC: ER 18:27
DX: F10.129 Alcohol abuse with intoxication, unspecified (principal); Z20.822 Contact with and (suspected) exposure to COVID-19; R45.851 Suicidal ideations; R45.850 Homicidal ideations; Z79.899 Other long term (current) drug therapy; Y90.9 Presence of alcohol in blood, level not specified
CPT/HCPCS: 36415; 80053; 80305; 80320; 81001; 85025; 87088; 87811; 96372; 99285; J2060; 81003; 81025

== ENCOUNTER 2023-09-09 01:31 | Emergency (ER) | payer MEDICAID ==
[~2023-09-09] VITALS: Ht 170.2 cm; Wt 90.9 kg
[2023-09-09 01:41] VITALS: TEMP 98.2
[2023-09-09] MEDS ORDERED: normal saline 1000ml 1,000 ML IV ONE (03:10)
[2023-09-09 03:31] LABS: BASOPHILS % (AUTO) 0.3 % (0-1); EOSINOPHILS # (AUTO) 0.1 X10'3 (0-0.9); EOSINOPHILS % (AUTO) 0.6 % (0-6); HEMATOCRIT 39.3 % (35.0-45.0); HEMOGLOBIN 13.5 g/dl (12.0-16.0); LYMPHOCYTES # (AUTO) 1.3 X10'3 (1.1-4.8); LYMPHOCYTES % (AUTO) 9.7 % (21-51); MEAN CORPUSCULAR HEMOGLOBIN 29.7 PG (27.0-31.0); MEAN CORPUSCULAR HGB CONC 34.4 g/dL (33.0-36.5); MEAN CORPUSCULAR VOLUME 86.3 FL (78-98); MEAN PLATELET VOLUME 7.6 FL (7.4-10.4); MONOCYTES # (AUTO) 0.7 X10'3 (0-0.9); MONOCYTES % (AUTO) 5.3 % (2-12); NEUTROPHILS # (AUTO) 10.9 X10'3 (1.8-7.7); NEUTROPHILS % (AUTO) 84.1 % (42-75); PLATELET COUNT 242 X10'3 (140-440); RED BLOOD COUNT 4.56 X10'6 (4.20-5.60); RED CELL DISTRIBUTION WIDTH 13.3 % (11.5-14.5)
[2023-09-09 03:43] LABS: APTT 23 SECONDS (22-32); PROTHROMBIN TIME 10.3 SECONDS (9.0-12.0)
[2023-09-09 03:44] LABS: ALANINE AMINOTRANSFERASE 16 U/L (12-78); ALBUMIN 3.4 G/DL (3.4-5.0); ALBUMIN/GLOBULIN RATIO 0.9 (1.1-1.5); ALKALINE PHOSPHATASE 56 IU/L (46-116); ANION GAP 11 (8-16); ASPARTATE AMINO TRANSFERASE 19 U/L (10-37); BILIRUBIN,TOTAL 0.3 MG/DL (0.1-1.0); BLOOD UREA NITROGEN 6 MG/DL (7-18); BUN/CREATININE RATIO 8.1 (10.0-20.0); CALCIUM 8.7 MG/DL (8.5-10.1); CHLORIDE 103 MMOL/L (99-107); CREATININE 0.74 MG/DL (0.40-0.90); GLUCOSE 106 MG/DL (70-104); POTASSIUM 3.3 MMOL/L (3.5-5.1); SODIUM 137 MMOL/L (135-145); TOTAL CARBON DIOXIDE 23.3 MMOL/L (24-32); TOTAL PROTEIN 7.3 G/DL (6.4-8.2); eCRCL 110 ML/MIN; eGFR > 90 ML/MIN
[2023-09-09] MEDS ORDERED: tranexamic acid inj. 1,000 MG in normal saline 100ml IV soln 90 ML IV ONE (03:55)
[2023-09-09] MEDS ORDERED: ondansetron 4mg rapidly disintigrating tab PO ONE (03:55)
[2023-09-09 03:57] VITALS: BP 108/54; PULSE 67; RESP 16; O2SAT 99
[2023-09-09] MEDS ORDERED: fentaNYL/PF 50MCG/1 ML 2ML syringe IV ONE (04:00)
[2023-09-09 04:49] LABS: BETA HCG,QUANTITATIVE 42753 mIU/ml
== END 2023-09-09 06:18 | disposition home or self-care (01) ==
LOC: ER 01:31
DX: N93.9 Abnormal uterine and vaginal bleeding, unspecified (principal); F41.9 Anxiety disorder, unspecified; F32.A Depression, unspecified
CPT/HCPCS: 36415; 80053; 84702; 85025; 85610; 85730; 86885; 86900; 86901; 96361; 96365; 96375; 99284; J3010; J3490; J7030

== ENCOUNTER 2024-02-07 12:22 | Emergency (ER) | payer MEDICAID ==
[~2024-02-07] VITALS: Ht 170.2 cm; Wt 67.5 kg
[2024-02-07 12:42] VITALS: BP 103/66; PULSE 120; RESP 18; TEMP 101.1; O2SAT 95
[2024-02-07] MEDS: acetaminophen 325mg tablet PO ONE (12:59)
[2024-02-07 13:09] LABS: BILIRUBIN,URINE SMALL (Neg); CLARITY,URINE CLOUDY (Clear); COLOR,URINE YELLOW (Yellow); GLUCOSE, URINE NEGATIVE (Neg); KETONES,URINE 15 mg/dl (Neg); LEUKOCYTE ESTERASE ,URINE SMALL (Neg); NITRITES, URINE POSITIVE (Neg); OCCULT BLOOD,URINE TRACE-INTACT (Neg); PROTEIN,URINE 30 mg/dl (Neg)
[2024-02-07 13:14] LABS: UA COLLECTION TYPE CLN CATCH MIDSTREAM
[2024-02-07 13:15] LABS: BACTERIA,URINE 2+ /HPF (Neg); MUCUS STRANDS MODERATE /LPF (Neg); RBC,URINE 0-2 /HPF (0-2); SQUAMOUS EPITHELIAL CELL,UR MANY /LPF (FEW); WBC CLUMPS,URINE MODERATE /HPF (NEGATIVE); WBC,URINE TNTC /HPF (0-4)
[2024-02-07 13:16] LABS: BASOPHILS % (AUTO) 0.3 % (0-1); EOSINOPHILS % (AUTO) 0.2 % (0-6); HEMATOCRIT 39.6 % (35.0-45.0); HEMOGLOBIN 13.6 g/dl (12.0-16.0); LYMPHOCYTES # (AUTO) 0.8 X10'3 (1.1-4.8); LYMPHOCYTES % (AUTO) 6.4 % (21-51); MEAN CORPUSCULAR HEMOGLOBIN 29.8 PG (27.0-31.0); MEAN CORPUSCULAR HGB CONC 34.3 g/dL (33.0-36.5); MEAN CORPUSCULAR VOLUME 86.8 FL (78-98); MEAN PLATELET VOLUME 8.1 FL (7.4-10.4); MONOCYTES # (AUTO) 1.1 X10'3 (0-0.9); MONOCYTES % (AUTO) 8.7 % (2-12); NEUTROPHILS # (AUTO) 10.3 X10'3 (1.8-7.7); NEUTROPHILS % (AUTO) 84.4 % (42-75); PLATELET COUNT 220 X10'3 (140-440); RED BLOOD COUNT 4.56 X10'6 (4.20-5.60); RED CELL DISTRIBUTION WIDTH 13.4 % (11.5-14.5); WHITE BLOOD COUNT 12.2 X10'3 (4.5-11.0)
[2024-02-07 13:25] LABS: ALBUMIN 3.5 G/DL (3.4-5.0); ANION GAP 12 (8-16); BLOOD UREA NITROGEN 6 MG/DL (7-18); BUN/CREATININE RATIO 7.5 (10.0-20.0); CALCIUM 9.4 MG/DL (8.5-10.1); CHLORIDE 101 MMOL/L (99-107); GLUCOSE 135 MG/DL (70-104); POTASSIUM 3.3 MMOL/L (3.5-5.1); SODIUM 137 MMOL/L (135-145); TOTAL CARBON DIOXIDE 24.4 MMOL/L (24-32); eCRCL 102 ML/MIN; eGFR 85 ML/MIN
[2024-02-07] MEDS ORDERED: LEVO-65 PO (13:56)
[2024-02-07] MEDS: levoFLOXACIN 750MG TABLET PO ONE (14:02)
[2024-02-10] MEDS ORDERED: ketorolac tromethamine 15mg/ml inj. IV SCH (01:40)
== END 2024-02-07 14:06 | disposition home or self-care (01) ==
LOC: ER 12:23
DX: N39.0 Urinary tract infection, site not specified (principal); R50.9 Fever, unspecified; Z88.5 Allergy status to narcotic agent; Z79.899 Other long term (current) drug therapy
CPT/HCPCS: 80048; 81001; 84145; 85025; 99283

== ENCOUNTER 2024-02-09 19:29 | Inpatient (IN) | payer MEDICAID ==
[~2024-02-09] VITALS: Ht 170.2 cm; Wt 65.9 kg
[~2024-02-09 19:29] MED LIST changes: +LEVO-65 PO; -NALT50TA PO; +NALT50TA5 PO
[2024-02-09 20:35] LABS: ALANINE AMINOTRANSFERASE 24 U/L (12-78); ALBUMIN/GLOBULIN RATIO 0.6 (1.1-1.5); ALKALINE PHOSPHATASE 85 IU/L (46-116); ANION GAP 9 (8-16); ASPARTATE AMINO TRANSFERASE 10 U/L (10-37); BASOPHILS % (AUTO) 0.2 % (0-1); BILIRUBIN,TOTAL 0.5 MG/DL (0.1-1.0); BLOOD UREA NITROGEN 11 MG/DL (7-18); BUN/CREATININE RATIO 13.6 (10.0-20.0); CALCIUM 9.6 MG/DL (8.5-10.1); CHLORIDE 101 MMOL/L (99-107); CREATININE 0.81 MG/DL (0.40-0.90); EOSINOPHILS % (AUTO) 0.2 % (0-6); GLUCOSE 111 MG/DL (70-104); HEMATOCRIT 37.1 % (35.0-45.0); HEMOGLOBIN 12.6 g/dl (12.0-16.0); LIPASE 25 U/L (16-77); MEAN CORPUSCULAR HEMOGLOBIN 29.4 PG (27.0-31.0); MEAN CORPUSCULAR HGB CONC 34.1 g/dL (33.0-36.5); MEAN CORPUSCULAR VOLUME 86.2 FL (78-98); MEAN PLATELET VOLUME 8.1 FL (7.4-10.4); MONOCYTES # (AUTO) 0.8 X10'3 (0-0.9); NEUTROPHILS # (AUTO) 11.9 X10'3 (1.8-7.7); NEUTROPHILS % (AUTO) 86.6 % (42-75); PLATELET COUNT 245 X10'3 (140-440); RED CELL DISTRIBUTION WIDTH 13.3 % (11.5-14.5); SODIUM 138 MMOL/L (135-145); TOTAL CARBON DIOXIDE 28.3 MMOL/L (24-32); WHITE BLOOD COUNT 13.7 X10'3 (4.5-11.0); eCRCL 100 ML/MIN; eGFR 84 ML/MIN
[2024-02-09] MEDS ORDERED: CLON0.5T4 (21:29)
[2024-02-09] MEDS ORDERED: potassium Cl 40MEQ/1/2NS 520ml 520 ML IV PRN (21:40)
[2024-02-09] MEDS ORDERED: HYDROcodone/acetaminophen 5mg/325mg tablet PO PRN (21:40)
[2024-02-09] MEDS ORDERED: morphine 2 MG/ML inj. syringe IV PRN (21:40)
[2024-02-09] MEDS ORDERED: acetaminophen 325mg tablet PO PRN ×2 (21:40)
[2024-02-09] MEDS ORDERED: magnesium Cl slow-release 64mg tablet PO PRN (21:40)
[2024-02-09] MEDS ORDERED: magnesium 4gm in 100ml NS 100 ML IV PRN (21:40)
[2024-02-09] MEDS ORDERED: mag hydrox/Alum hydrox/simeth 30ml oral suspension PO PRN (21:40)
[2024-02-09] MEDS ORDERED: metoclopramide 5 mg/ml inj IV PRN (21:40)
[2024-02-09] MEDS ORDERED: magnesium hydroxide 30ml (MOM) UD suspension PO PRN (21:40)
[2024-02-09] MEDS ORDERED: acetaminophen 650mg rectal suppository RC PRN (21:40)
[2024-02-09] MEDS ORDERED: magnesium 2GM in 50ml NS 50 ML IV PRN (21:40)
[2024-02-09] MEDS ORDERED: ondansetron 4mg rapidly disintigrating tab PO PRN (21:40)
[2024-02-09] MEDS: normal saline 1000ml 1,000 ML IV SCH (21:40)
[2024-02-09 22:06] LABS: BILIRUBIN,URINE SMALL (Neg); CLARITY,URINE SLIGHTLY CLOUDY (Clear); COLOR,URINE YELLOW (Yellow); GLUCOSE, URINE NEGATIVE (Neg); KETONES,URINE TRACE mg/dl (Neg); LEUKOCYTE ESTERASE ,URINE NEGATIVE (Neg); NITRITES, URINE NEGATIVE (Neg); OCCULT BLOOD,URINE SMALL (Neg); PH,URINE 7.5 (4.8-8.0); PROTEIN,URINE 30 mg/dl (Neg); UROBILINOGEN,URINE 0.2 E.U/dL (0.2-1.0)
[2024-02-09 22:10] LABS: URINE HCG NEGATIVE (NEG)
[2024-02-09 22:12] LABS: MAGNESIUM 1.8 MG/DL (1.5-2.4); PHOSPHORUS 2.9 MG/DL (2.3-4.5)
[2024-02-09 22:19] LABS: UA COLLECTION TYPE CLN CATCH MIDSTREAM
[2024-02-09] MEDS ORDERED: IOHEXOL 12MG/ML oral solution 500 ML BOTTLE PO ONE (22:20)
[2024-02-09 22:21] LABS: SQUAMOUS EPITHELIAL CELL,UR MANY /LPF (FEW)
[2024-02-09 22:22] LABS: BACTERIA,URINE FEW /HPF (Neg); TRANSITIONAL EPI CELLS,URINE FEW /HPF
[2024-02-09 22:27] LABS: WBC CLUMPS,URINE FEW /HPF (NEGATIVE)
[2024-02-09] MEDS: ondansetron/PF 4mg/2ml inj IV PRN (22:56)
[2024-02-09] MEDS: morphine 2 MG/ML inj. syringe IV PRN (22:57)
[2024-02-09] MEDS: morphine 2 MG/ML inj. syringe IV ONE (23:41)
[2024-02-09] MEDS: CefTRIAXone/D5W-Rocephin 1gm 50 ML IV SCH (23:49)
[2024-02-09] MEDS: diatr meglu/diatrizoate 30ml oral sol.-(3 dose) bottle PO SCH (23:50)
[2024-02-10] MEDS ORDERED: morphine 2 MG/ML inj. syringe IV PRN (01:35)
[2024-02-10] MEDS: potassium Cl 20 mEq SR tablet PO PRN (01:59)
[2024-02-10 02:00] VITALS: BP 89/54; PULSE 70; RESP 16; TEMP 97.5; O2SAT 98
[2024-02-10] MEDS ORDERED: pantoprazole 40mg IV 80 MG in normal saline 100ml IV soln 100 ML IV ONE (02:00)
[2024-02-10] MEDS ORDERED: ESCI5TAB17 PO (02:35)
[2024-02-10] MEDS: pantoprazole 40 MG vial IV ONE (03:02)
[2024-02-10] MEDS: ketorolac trometh. 30mg/ml inj. IV SCH (03:08)
[2024-02-10] MEDS: clonazePAM 0.5mg tablet PO PRN (03:13)
[2024-02-10 06:00] VITALS: BP 85/48; PULSE 81; RESP 15; TEMP 98.2; O2SAT 97
[2024-02-10] MEDS: busPIRone 5mg tablet PO SCH (07:12)
[2024-02-10] MEDS: docusate sod 100mg capsule PO SCH (07:12)
[2024-02-10] MEDS: ESCITALOPRAM 10 mg tablet 10 MG TABLET PO SCH (07:13)
[2024-02-10] MEDS: pantoprazole 40 MG vial IV SCH (07:14)
[2024-02-10] MEDS: naltrexone 50mg tablet PO SCH (07:19)
[2024-02-10] MEDS: K and/or MAG REPLACEMENT MC SCH (07:20)
[2024-02-10 07:32] LABS: BASOPHILS % (AUTO) 0.2 % (0-1); EOSINOPHILS % (AUTO) 0.2 % (0-6); HEMATOCRIT 32.2 % (35.0-45.0); HEMOGLOBIN 10.9 g/dl (12.0-16.0); LYMPHOCYTES # (AUTO) 1.8 X10'3 (1.1-4.8); LYMPHOCYTES % (AUTO) 15.5 % (21-51); MEAN CORPUSCULAR HEMOGLOBIN 29.2 PG (27.0-31.0); MEAN CORPUSCULAR HGB CONC 33.9 g/dL (33.0-36.5); MEAN CORPUSCULAR VOLUME 86.2 FL (78-98); MEAN PLATELET VOLUME 8.1 FL (7.4-10.4); MONOCYTES # (AUTO) 1.2 X10'3 (0-0.9); MONOCYTES % (AUTO) 10.6 % (2-12); NEUTROPHILS # (AUTO) 8.7 X10'3 (1.8-7.7); NEUTROPHILS % (AUTO) 73.5 % (42-75); PLATELET COUNT 229 X10'3 (140-440); RED BLOOD COUNT 3.73 X10'6 (4.20-5.60); RED CELL DISTRIBUTION WIDTH 13.5 % (11.5-14.5); WHITE BLOOD COUNT 11.8 X10'3 (4.5-11.0)
[2024-02-10] MEDS ORDERED: pantoprazole 40MG/NS 100ML BAG 100 ML IV SCH (08:00)
[2024-02-10 08:01] LABS: ALANINE AMINOTRANSFERASE 21 U/L (12-78); ALBUMIN 2.4 G/DL (3.4-5.0); ALBUMIN/GLOBULIN RATIO 0.5 (1.1-1.5); ALKALINE PHOSPHATASE 75 IU/L (46-116); ANION GAP 10 (8-16); ASPARTATE AMINO TRANSFERASE 13 U/L (10-37); BILIRUBIN,TOTAL 0.4 MG/DL (0.1-1.0); BLOOD UREA NITROGEN 10 MG/DL (7-18); BUN/CREATININE RATIO 13.5 (10.0-20.0); CALCIUM 8.3 MG/DL (8.5-10.1); CHLORIDE 103 MMOL/L (99-107); CREATININE 0.74 MG/DL (0.40-0.90); GLUCOSE 91 MG/DL (70-104); MAGNESIUM 1.7 MG/DL (1.5-2.4); PHOSPHORUS 4.6 MG/DL (2.3-4.5); POTASSIUM 3.6 MMOL/L (3.5-5.1); SODIUM 138 MMOL/L (135-145); TOTAL CARBON DIOXIDE 25.1 MMOL/L (24-32); TOTAL PROTEIN 6.8 G/DL (6.4-8.2); eCRCL 109 ML/MIN; eGFR > 90 ML/MIN
[2024-02-10 10:00] VITALS: BP 88/46; PULSE 69; RESP 14; TEMP 97.7; O2SAT 100
[2024-02-10] MEDS ORDERED: iohexol 300mg/ml 100ml inj. ONE (11:02)
[2024-02-10 14:31] LABS: BILIRUBIN,URINE NEGATIVE (Neg); CLARITY,URINE CLEAR (Clear); COLOR,URINE YELLOW (Yellow); GLUCOSE, URINE NEGATIVE (Neg); KETONES,URINE NEGATIVE (Neg); LEUKOCYTE ESTERASE ,URINE NEGATIVE (Neg); NITRITES, URINE NEGATIVE (Neg); OCCULT BLOOD,URINE TRACE-INTACT (Neg); PH,URINE 5.5 (4.8-8.0); PROTEIN,URINE TRACE mg/dl (Neg); UA COLLECTION TYPE NON-SPECIFIED; UROBILINOGEN,URINE 0.2 E.U/dL (0.2-1.0)
[2024-02-10 14:42] LABS: BACTERIA,URINE NONE SEEN /HPF (Neg); MUCUS STRANDS NONE SEEN /LPF (Neg); RBC,URINE 0-2 /HPF (0-2); SQUAMOUS EPITHELIAL CELL,UR FEW /LPF (FEW); WBC,URINE 0-4 /HPF (0-4)
[2024-02-10 18:00] VITALS: BP 85/50; PULSE 83; RESP 16; TEMP 98.2; O2SAT 98
[2024-02-10 22:00] VITALS: BP 93/57; PULSE 84; RESP 16; TEMP 98.2; O2SAT 100
[2024-02-10] MEDS: QUEtiapine 25mg tablet PO SCH (22:13)
[2024-02-10] MEDS: CefTRIAXone/D5W-Rocephin 1gm 50 ML IV SCH (22:34)
[2024-02-11 06:00] VITALS: BP 109/69; PULSE 62; RESP 15; TEMP 98.4; O2SAT 99
[2024-02-11 07:11] LABS: BASOPHILS % (AUTO) 0.2 % (0-1); EOSINOPHILS % (AUTO) 0.7 % (0-6); HEMATOCRIT 31.4 % (35.0-45.0); HEMOGLOBIN 10.6 g/dl (12.0-16.0); MEAN CORPUSCULAR HEMOGLOBIN 29.7 PG (27.0-31.0); MEAN CORPUSCULAR HGB CONC 33.9 g/dL (33.0-36.5); MEAN CORPUSCULAR VOLUME 87.7 FL (78-98); MEAN PLATELET VOLUME 7.8 FL (7.4-10.4); MONOCYTES # (AUTO) 0.7 X10'3 (0-0.9); MONOCYTES % (AUTO) 9.5 % (2-12); NEUTROPHILS # (AUTO) 5.6 X10'3 (1.8-7.7); NEUTROPHILS % (AUTO) 75.6 % (42-75); PLATELET COUNT 231 X10'3 (140-440); RED BLOOD COUNT 3.58 X10'6 (4.20-5.60); RED CELL DISTRIBUTION WIDTH 13.7 % (11.5-14.5); WHITE BLOOD COUNT 7.4 X10'3 (4.5-11.0)
[2024-02-11 07:28] LABS: ALANINE AMINOTRANSFERASE 16 U/L (12-78); ALBUMIN 2.2 G/DL (3.4-5.0); ALBUMIN/GLOBULIN RATIO 0.6 (1.1-1.5); ALKALINE PHOSPHATASE 73 IU/L (46-116); ANION GAP 6 (8-16); ASPARTATE AMINO TRANSFERASE 11 U/L (10-37); BILIRUBIN,TOTAL 0.2 MG/DL (0.1-1.0); BLOOD UREA NITROGEN 5 MG/DL (7-18); BUN/CREATININE RATIO 7.9 (10.0-20.0); CALCIUM 7.9 MG/DL (8.5-10.1); CHLORIDE 107 MMOL/L (99-107); CREATININE 0.63 MG/DL (0.40-0.90); GLUCOSE 106 MG/DL (70-104); MAGNESIUM 1.7 MG/DL (1.5-2.4); PHOSPHORUS 2.5 MG/DL (2.3-4.5); POTASSIUM 3.4 MMOL/L (3.5-5.1); SODIUM 138 MMOL/L (135-145); TOTAL PROTEIN 6.1 G/DL (6.4-8.2); eCRCL 128 ML/MIN; eGFR > 90 ML/MIN
[2024-02-11] MEDS: potassium Cl 20 mEq SR tablet PO PRN (07:40)
[2024-02-11] MEDS: HYDROcodone/acetaminophen 10/325mg tab PO PRN (07:49)
[2024-02-11 07:53] VITALS: RESP 15; O2SAT 99
[2024-02-11 10:00] VITALS: BP 97/53; PULSE 95; RESP 18; TEMP 97.4; O2SAT 95
[2024-02-11 18:00] VITALS: BP 97/53; PULSE 84; RESP 18; TEMP 98; O2SAT 98
[2024-02-11 22:00] VITALS: BP 107/67; PULSE 86; RESP 16; TEMP 97.8; O2SAT 91
[2024-02-11] MEDS: pantoprazole 40mg Tablet.DR PO SCH (22:11)
[2024-02-12 06:00] VITALS: BP 96/59; PULSE 89; RESP 16; TEMP 97.9; O2SAT 94
[2024-02-12 07:24] LABS: BASOPHILS % (AUTO) 0.3 % (0-1); EOSINOPHILS # (AUTO) 0.1 X10'3 (0-0.9); HEMATOCRIT 32.3 % (35.0-45.0); LYMPHOCYTES # (AUTO) 1.3 X10'3 (1.1-4.8); LYMPHOCYTES % (AUTO) 18.3 % (21-51); MEAN CORPUSCULAR HEMOGLOBIN 29.6 PG (27.0-31.0); MEAN CORPUSCULAR HGB CONC 33.9 g/dL (33.0-36.5); MEAN CORPUSCULAR VOLUME 87.1 FL (78-98); MEAN PLATELET VOLUME 7.6 FL (7.4-10.4); MONOCYTES # (AUTO) 0.7 X10'3 (0-0.9); MONOCYTES % (AUTO) 10.3 % (2-12); NEUTROPHILS # (AUTO) 5.1 X10'3 (1.8-7.7); NEUTROPHILS % (AUTO) 70.1 % (42-75); PLATELET COUNT 237 X10'3 (140-440); RED BLOOD COUNT 3.71 X10'6 (4.20-5.60); RED CELL DISTRIBUTION WIDTH 13.6 % (11.5-14.5); WHITE BLOOD COUNT 7.2 X10'3 (4.5-11.0)
[2024-02-12 08:03] LABS: ALANINE AMINOTRANSFERASE 20 U/L (12-78); ALBUMIN 2.2 G/DL (3.4-5.0); ALBUMIN/GLOBULIN RATIO 0.5 (1.1-1.5); ALKALINE PHOSPHATASE 82 IU/L (46-116); ANION GAP 8 (8-16); ASPARTATE AMINO TRANSFERASE 11 U/L (10-37); BILIRUBIN,TOTAL 0.2 MG/DL (0.1-1.0); BLOOD UREA NITROGEN 1 MG/DL (7-18); CALCIUM 8.6 MG/DL (8.5-10.1); CHLORIDE 107 MMOL/L (99-107); GLUCOSE 90 MG/DL (70-104); MAGNESIUM 1.9 MG/DL (1.5-2.4); PHOSPHORUS 3.2 MG/DL (2.3-4.5); POTASSIUM 3.7 MMOL/L (3.5-5.1); SODIUM 139 MMOL/L (135-145); TOTAL CARBON DIOXIDE 24.1 MMOL/L (24-32); TOTAL PROTEIN 6.3 G/DL (6.4-8.2); eCRCL 161 ML/MIN; eGFR > 90 ML/MIN
[2024-02-12 10:29] VITALS: BP 101/55; PULSE 70; RESP 16; TEMP 97.6; O2SAT 95
[2024-02-12] MEDS ORDERED: AMOX-419 PO (13:57)
[2024-02-12 16:16] VITALS: RESP 16
== END 2024-02-12 16:20 | disposition home or self-care (01) | DRG 720 ==
LOC: ER 19:30 → ED HOLD 21:42 → EDBEDREQ 02-10 01:37 → ORTHO 4S 02-10 02:07
PROVIDERS: ADMIT Surgery; ATTEND Family Medicine
PROC: BW211ZZ Computerized Tomography (CT Scan) of Abdomen and Pelvis using Low Osmolar Contrast (ICD-10-PCS; principal; 2024-02-10)
DX: A41.9 Sepsis, unspecified organism (principal); D64.9 Anemia, unspecified; E87.6 Hypokalemia; F10.21 Alcohol dependence, in remission; F31.9 Bipolar disorder, unspecified; N10 Acute pyelonephritis; F41.1 Generalized anxiety disorder; G62.9 Polyneuropathy, unspecified; Z87.891 Personal history of nicotine dependence
CPT/HCPCS: 36415; 74177; 76700; 80053; 81001; 81025; 83605; 83690; 83735; 84100; 84145; 85025; 87081; 87088; 96360; 99285; C9113; G0378; J0696; J1885; J2270; J2405; J7030; Q9963; Q9967

== ENCOUNTER 2024-02-16 12:54 | Outpatient (CLI) | payer MEDICAID ==
[~2024-02-16 12:54] MED LIST changes: +AMOX-419 PO; +CLON0.5T4; +ESCI5TAB17 PO; -HYDR-3686 PO; -LEVO-65 PO; -SERT25TA PO
== END 2024-02-16 23:59 | disposition home or self-care (01) ==
LOC: RAD 12:54
PROVIDERS: ATTEND Nurse Practitioner Family
DX: R59.0 Localized enlarged lymph nodes (principal)
CPT/HCPCS: 76881